=== PATIENT | male | born 1985 | race American Indian/Alaskan Native ===

== ENCOUNTER 2017-01-02 21:09 | Inpatient (IN) | payer OTHER ==
--- NOTE | 2017-01-02 21:38 | C.PDOC ---
History Of Present Illness Patient presents to the ER with a complaint of abdominal pain, nausea, and vomiting that began today. Patient has been drinking heavily over the last couple of days; denies fever or chills. Time Seen by Provider: 01/02/17 21:23 Chief Complaint (Nursing): Abdominal Pain History Per: Patient History/Exam Limitations: no limitations Onset/Duration Of Symptoms: Hrs Current Symptoms Are (Timing): Still Present Severity: Moderate Pain Scale Rating Of: 5 Location Of Pain/Discomfort: Epigastric, LUQ Radiation Of Pain To:: None Quality Of Discomfort: Unable To Describe Associated Symptoms: Nausea, Vomiting. denies: Fever, Chills Exacerbating Factors: None Alleviating Factors: None Recent travel outside of the [place]: No Past Medical History Reviewed: Historical Data, Nursing Documentation, Vital Signs Vital Signs: Last Vital Signs Temp 97.6 F 01/02/17 21:16 Pulse 80 01/02/17 21:16 Resp 16 01/02/17 21:16 BP 115/90 01/02/17 21:16 Pulse Ox 96 01/02/17 22:16 - Medical History PMH: Anxiety, Depression, HTN, Pancreatitis, Post Traumatic Stress Disorder Surgical History: No Surg Hx - [facility] Procedures ALCOHOL DETOXIFICATION (02/13/15) DETOXIFICATION SERVICES FOR SUBSTANCE ABUSE TREATMENT (03/10/15) Family History: States: Unknown Family Hx, Diabetes, Hypertension - Social History Hx Tobacco Use: Yes Hx Alcohol Use: Yes Hx Substance Use: Yes (hx of cocaine,marajuana) - Immunization History Hx Tetanus Toxoid Vaccination: No Hx Influenza Vaccination: Yes Hx Pneumococcal Vaccination: No Review Of Systems Constitutional: Negative for: Fever, Chills Gastrointestinal: Positive for: Nausea, Vomiting, Abdominal Pain Physical Exam - Physical Exam Appears: Non-toxic Skin: Warm, Dry Oral Mucosa: Moist Chest: Symmetrical, No Tenderness Cardiovascular: Rhythm Regular, No Murmur Respiratory: No Rales, No Rhonchi, No Wheezing Gastrointestinal/Abdominal: Soft, Tenderness (Mid epigastric, LUQ), Guarding ( Voluntary), No Rebound Neurological/Psych: Oriented x3 ED Course And Treatment - Laboratory Results Result Diagrams: 01/02/17 21:44 01/02/17 21:44 O2 Sat by Pulse Oximetry: 96 (Room air) Pulse Ox Interpretation: Normal Progress Note: Toradol, zofran, morphine, protonix, and IV fluids administered. Urinalysis ordered. Disposition Discussed With : Laron Santos Comment: accepted the pt on his service and took over the care at 12:39AM Doctor Will See Patient In The: Hospital Counseled Patient/Family Regarding: Studies Performed, Diagnosis - Disposition Disposition: HOSPITALIZED Disposition Time: 00:40 Condition: FAIR - POA Present On Arrival: None - Clinical Impression Clinical Impression: Abdominal pain, Pancreatitis, Alcohol abuse - Scribe Statement The provider has reviewed the documentation as recorded by the Scribandressa Swartz All medical record entries made by the Amadoibe were at my direction and personally dictated by me. I have reviewed the chart and agree that the record accurately reflects my personal performance of the history, physical exam, medical decision making, and the department course for this patient. I have also personally directed, reviewed, and agree with the discharge instructions and disposition. Decision To Admit - Pt Status Changed To: Hospital Disposition Of: Inpatient - Admit Certification Admit to Inpatient:: After my assessment, the patient will require hospitalization for at least two midnights. This is because of the severity of symptoms shown, intensity of services needed, and/or the medical risk in this patient being treated as an outpatient. - InPatient: Physician Admission Certification:: After my assessment, the patient will require hospitalization for at least two midnights. This is because of the severity of symptoms shown, intensity of services needed, and/or the medical risk in this patient being treated as an outpatient. - . Bed Request Type: Regular Patient Diagnosis: Abdominal pain, Pancreatitis, Alcohol abuse
[2017-01-02] MEDS ORDERED: Sodium Chloride 0.9% 1,000 ML IV ONE (21:39)
[2017-01-02] MEDS ORDERED: Sodium Chloride 0.9% 1,000 ML ONE (21:46)
[2017-01-02] MEDS ORDERED: Morphine 4 MG/ML VIAL ONE (21:46)
[2017-01-02 21:53] LABS: BASO # 0.2 K/uL (0.0-0.2); EOS # 0.9 K/uL (0.0-0.7); EOS % 17.5 % (0.0-4.0); HEMOGLOBIN 16.1 g/dL (12.0-18.0); LYMPH # 1.3 K/uL (1.0-4.3); LYMPH % 23.9 % (20.0-40.0); MEAN CELL VOLUME 89.9 fL (80.0-94.0); MEAN CORPUSCULAR HEMOGLOBIN 31.5 pg (27.0-31.0); MEAN PLATELET VOLUME 7.9 fL (7.2-11.7); MONO # 0.3 K/uL (0.0-0.8); MONO % 6.2 % (0.0-10.0); NEUT # 2.6 K/uL (1.8-7.0); NEUT % 49.4 % (50.0-75.0); NRBC % 0.2 % (0.0-2.0); RBC 5.11 Mil/uL (4.40-5.90); RED CELL DISTRIBUTION WIDTH 12.5 % (11.5-14.5); WHITE BLOOD COUNT 5.3 K/uL (4.8-10.8)
[2017-01-02 21:59] LABS: INR 1.1; PROTHROMBIN TIME 11.8 SECONDS (9.7-12.2)
[2017-01-02 22:04] LABS: ALBUMIN 3.8 g/dL (3.5-5.0)
[2017-01-02 22:07] LABS: ALT/SGPT 97 U/L (21-72); AST/SGOT 142 U/L (17-59); BLOOD UREA NITROGEN 14 mg/dL (9-20); CALCIUM 8.7 mg/dl (8.6-10.4); GFR AFRICAN-AMERICAN > 60; GFR NON-AFRICAN AMERICAN > 60
[2017-01-02 22:08] LABS: LIPASE 642 U/L (23-300)
[2017-01-02] MEDS ORDERED: Iodixanol 320 MG/ML 100 ML BOTTLE IV ONE (23:28)
--- NOTE | 2017-01-03 00:21 | CT ---
EXAM: CT Abdomen and Pelvis Without Intravenous Contrast CLINICAL HISTORY: 31 years old, male; Pain; Abdominal pain; Generalized; Additional info: Elevated lipase, abd pain, ETOH abuse TECHNIQUE: Axial computed tomography images of the abdomen and pelvis without intravenous contrast. This CT exam was performed using one or more of the following dose reduction techniques: automated exposure control, adjustment of the mA and/or kV according to patient size, and/or use of iterative reconstruction technique. Coronal and sagittal reformatted images were created and reviewed. COMPARISON: CT - ABD PELVIS W/O PO OR IV CONT 08/09/2015 9:02:47 AM FINDINGS: Lower thorax: The bilateral lung bases are clear. ABDOMEN: Liver: The liver is enlarged and demonstrates diffuse fatty infiltration. Gallbladder and bile ducts: The gallbladder is only minimally distended, without calcified stones. No intra-extrahepatic biliary ductal dilation. Pancreas: Loss of normal fatty lobulation of the pancreas is identified. The pancreas is also increased in size with peripancreatic inflammation, primarily within the lesser sac and retroperitoneum. Spleen: The spleen is not enlarged. Adrenals: No acute findings. Kidneys and ureters: No obstructing stones. No hydronephrosis. PELVIS: Bladder: No acute findings. Reproductive: No acute findings. Appendix: The air filled appendix is of normal caliber (series 3, image 118; series 601, image 72). ABDOMEN and PELVIS: Stomach and bowel: No acute findings. Peritoneum: As above. Lymph nodes: Scattered subcentimeter lymph nodes within the retroperitoneum and the root of the mesentery, a nonspecific finding. Vasculature: No aortic aneurysm. Bones: No acute fracture. IMPRESSION: Findings within the pancreas consistent with acute interstitial edematous pancreatitis, as detailed above. Fatty infiltration of an enlarged liver.
[2017-01-03] MEDS ORDERED: Sodium Chloride 0.45% 1,000 ML IV SCH (01:30)
[2017-01-03] MEDS ORDERED: HYDROmorphone 1 mg/ml ISec ONE (01:31)
[2017-01-03] MEDS: HYDROmorphone 1 mg/ml ISec IVP PRN ×2 (01:44→13:40)
[2017-01-03 02:22] VITALS: RESP 20
[2017-01-03 06:54] LABS: URINE BILIRUBIN NEGATIVE (NEGATIVE); URINE BLOOD NEGATIVE (NEGATIVE); URINE CLARITY Clear (Clear); URINE COLOR Yellow (YELLOW); URINE GLUCOSE (UA) NORMAL (Normal); URINE LEUKOCYTE ESTERASE NEG Leu/uL (Negative); URINE NITRATE NEGATIVE (NEGATIVE); URINE PROTEIN NEGATIVE (NEGATIVE); URINE UROBILINOGEN NORMAL mg/dL (0.2-1.0)
[2017-01-03 08:19] LABS: HEMOGLOBIN 14.9 g/dL (12.0-18.0); MEAN CELL VOLUME 89.5 fL (80.0-94.0); MEAN CORPUSCULAR HEMOGLOBIN 31.4 pg (27.0-31.0); MEAN CORPUSCULAR HGB CONC 35.1 g/dL (33.0-37.0); MEAN PLATELET VOLUME 8.1 fL (7.2-11.7); RBC 4.75 Mil/uL (4.40-5.90); RED CELL DISTRIBUTION WIDTH 12.8 % (11.5-14.5); WHITE BLOOD COUNT 6.5 K/uL (4.8-10.8)
[2017-01-03 08:36] LABS: AMYLASE 146 U/L (30-110); LIPASE 533 U/L (23-300)
[2017-01-03] MEDS: Lactated Ringer's 1,000 ML IV SCH ×4 (09:34→21:00)
--- NOTE | 2017-01-03 09:55 | US ---
HISTORY: pancreatitis COMPARISON: None CT abdomen and pelvis from 01/02/2017. TECHNIQUE: Grayscale imaging was performed. FINDINGS: LIVER: Measures 18.0 cm. There is diffuse echogenicity of the liver parenchyma with focal fatty sparing near the gallbladder fossa. No mass. No intrahepatic bile duct dilatation. GALLBLADDER: Unremarkable. No gallstones. COMMON BILE DUCT: Measures 5.1 mm. No stones. No dilatation. PANCREAS: Mild edematous appearance of the pancreas. No mass. No ductal dilatation. RIGHT KIDNEY: Measures 11.6cm. Normal echogenicity. No calculus, mass, or hydronephrosis. LEFT KIDNEY: Measures 11.1cm. Normal echogenicity. No calculus, mass, or hydronephrosis. SPLEEN: Normal in size and contour. No mass. AORTA: No aneurysmal dilatation. IVC: Unremarkable. OTHER FINDINGS: None. IMPRESSION: Diffuse increased echogenicity in the liver may reflect hepatic steatosis however parenchymal infectious/ inflammatory etiologies cannot be entirely excluded. Clinical and laboratory correlation is advised. No cholelithiasis or biliary dilatation. Mild edematous pancreas.
[2017-01-03] MEDS ORDERED: Enoxaparin 30 mg Syringe SC SCH (10:00)
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
[2017-01-03] MEDS ORDERED: HYDROmorphone 1 mg/ml ISec IVP STA (18:58)
[2017-01-04] MEDS: Lactated Ringer's 1,000 ML IV SCH ×4 (01:00→13:41)
[2017-01-04] MEDS: HYDROmorphone 1 mg/ml ISec IVP PRN (05:30)
--- NOTE | 2017-01-04 08:20 | CP.PCM.PN ---
<Haja Santos - Last Filed: 01/04/17 12:45> Subjective - Date & Time of Evaluation Date of Evaluation: 01/04/17 Time of Evaluation: 07:45 - Subjective Subjective: PGY4 GI follow-up Pt seen and examined bedside No new complaints Abd pain resolved Able to tolerate full diet this AM + loose BM Viral any nausea and vomiting Denies any fever, chills, diaphoresis No other compliants ROS: 12-point ROS conducted, other than what was previously mentioned above ROS is neg Objective - Vital Signs/Intake and Output Vital Signs (last 24 hours): Temp Pulse Resp BP Pulse Ox 98.3 F 50 L 20 147/93 H 99 01/03/17 23:55 01/03/17 23:55 01/03/17 23:55 01/03/17 23:55 01/03/17 23:55 Intake and Output: 01/04/17 01/04/17 06:59 18:59 Intake Total 3850 Output Total 2300 Balance 1550 - Medications Medications: Current Medications Chlordiazepoxide (Librium) 25 mg PO BID PRN PRN Reason: Agitation Last Admin: 01/03/17 22:14 Dose: 25 mg Enoxaparin Sodium (Lovenox) 40 mg SC DAILY [facility] Hydromorphone HCl (Dilaudid) 0.5 mg IVP Q8 PRN PRN Reason: pain Last Admin: 01/04/17 05:30 Dose: 0.5 mg Lactated Ringer's (Lactated Ringer's) 1,000 mls @ 250 mls/hr IV .Q4H [facility] Last Admin: 01/04/17 05:00 Dose: 250 mls/hr Pantoprazole Sodium (Protonix Inj) 40 mg IVP DAILY [facility] Last Admin: 01/03/17 09:27 Dose: 40 mg Thiamine HCl (Vitamin B1 Tab) 100 mg PO DAILY [facility] Last Admin: 01/03/17 17:45 Dose: 100 mg - Labs Labs: 01/03/17 07:56 PT 11.8 SECONDS (9.7-12.2) 01/02/17 21:44 INR 1.1 01/02/17 21:44 APTT 34 SECONDS (21-34) 01/02/17 21:44 - Constitutional Appears: Non-toxic, No Acute Distress - Head Exam Head Exam: ATRAUMATIC, NORMOCEPHALIC - Eye Exam Eye Exam: Normal appearance - ENT Exam ENT Exam: Mucous Membranes Moist, Normal Exam - Neck Exam Neck Exam: Normal Inspection - Respiratory Exam Respiratory Exam: Clear to Ausculation Bilateral, NORMAL BREATHING PATTERN. absent: Rales, Rhonchi, Wheezes - Cardiovascular Exam Cardiovascular Exam: REGULAR RHYTHM, +S1, +S2 - GI/Abdominal Exam GI & Abdominal Exam: Soft, Normal Bowel Sounds. absent: Guarding, Rigid, Tenderness, Organomegaly - Extremities Exam Extremities Exam: Normal Inspection. absent: Joint Swelling - Neurological Exam Neurological Exam: Alert, Awake, Oriented x3 Assessment and Plan - Assessment and Plan (Free Text) Assessment: Patient is a 31yo male with PMHx significant for EtOH abuse, pancreatitis who presented to the ED with one day history of abdominal pain. -Acute EtOH intoxication -Impending EtOH withdrawal -EtOH abuse/dependence -Abdominal pain, resolved - possible mild pancreatitis though clinically not impressive Plan: -Recommend advancing diet as tolerated; pt requesting regular diet -IVF as ordered -Wean off analgesic medications as patient is asymptomatic -EtOH counselling, rehab -EtOH abstinence -OK to D/C from GI standpoint if tolerating diet d/w Dr Mooney <Jesica CALDERON,[facility] - Last Filed: 01/04/17 19:55> Objective - Vital Signs/Intake and Output Vital Signs (last 24 hours): Temp Pulse Resp BP Pulse Ox 98.2 F 53 L 20 140/76 96 01/04/17 07:20 01/04/17 07:20 01/04/17 07:20 01/04/17 07:20 01/04/17 07:20 Intake and Output: 01/04/17 01/05/17 18:59 06:59 Intake Total 1100 Balance 1100 - Labs Labs: 01/04/17 11:25 01/04/17 11:25 PT 11.8 SECONDS (9.7-12.2) 01/02/17 21:44 INR 1.1 01/02/17 21:44 APTT 34 SECONDS (21-34) 01/02/17 21:44 Attending/Attestation - Attestation I have personally seen and examined this patient.: Yes I have fully participated in the care of the patient.: Yes I have reviewed all pertinent clinical information, including history, physical exam and plan: Yes Notes (Text): 01/04/17 19:53 Patient seen with GI fellow. This is a 31 yr old M with alcoholic pancreatitis now with resolving symptoms and tolerating full solid diet. Alcohol cessation councelled and needs close outpatient follow up
[2017-01-04 08:21] VITALS: BP 140/76; PULSE 53; TEMP 98.2; O2SAT 96
[2017-01-04] MEDS ORDERED: Multiple Vitamins Oral Solution PO SCH (10:00)
[2017-01-04] MEDS ORDERED: Enoxaparin 40 mg Syringe SC SCH (10:00)
[2017-01-04 11:35] LABS: BASO % 0.3 % (0.0-2.0); EOS # 0.1 K/uL (0.0-0.7); EOS % 1.9 % (0.0-4.0); HEMOGLOBIN 13.8 g/dL (12.0-18.0); LYMPH # 0.8 K/uL (1.0-4.3); LYMPH % 15.6 % (20.0-40.0); MEAN CELL VOLUME 89.1 fL (80.0-94.0); MEAN CORPUSCULAR HGB CONC 34.7 g/dL (33.0-37.0); MEAN PLATELET VOLUME 8.3 fL (7.2-11.7); MONO # 0.4 K/uL (0.0-0.8); NEUT # 3.9 K/uL (1.8-7.0); NEUT % 74.2 % (50.0-75.0); RBC 4.46 Mil/uL (4.40-5.90); RED CELL DISTRIBUTION WIDTH 12.2 % (11.5-14.5); WHITE BLOOD COUNT 5.2 K/uL (4.8-10.8)
[2017-01-04 11:58] LABS: ALBUMIN 3.1 g/dL (3.5-5.0)
[2017-01-04 12:01] LABS: ALB/GLOB RATIO 0.9 (1.0-2.1); ALT/SGPT 83 U/L (21-72); AST/SGOT 146 U/L (17-59); BLOOD UREA NITROGEN 3 mg/dL (9-20); GFR AFRICAN-AMERICAN > 60; GFR NON-AFRICAN AMERICAN > 60
[2017-01-04 12:02] LABS: CALCIUM 8.3 mg/dl (8.6-10.4); MAGNESIUM 1.5 mg/dL (1.6-2.3)
--- NOTE | 2017-01-04 12:51 | CP.PCM.PN ---
Subjective - Date & Time of Evaluation Date of Evaluation: 01/04/17 Time of Evaluation: 07:30 - Subjective Subjective: PGY2 note for DR. Mary Santos: Patient seen and examined at bedside this morning. He denied abdominal pain stating this had resolved. He was able to tolerate a full diet and denied nausea ,vomiting. He admitted to mild tremors but denied anxiety, hallucinations, seizures, or other signs of withdrawal. Patient denies palpitations, fever/ chills CP, SOB, urinary complaint or all other complaints. He tolerated full diet and is ambulating. Objective - Vital Signs/Intake and Output Vital Signs (last 24 hours): Temp Pulse Resp BP Pulse Ox 98.2 F 53 L 20 140/76 96 01/04/17 07:20 01/04/17 07:20 01/04/17 07:20 01/04/17 07:20 01/04/17 07:20 Intake and Output: 01/04/17 01/04/17 06:59 18:59 Intake Total 3850 Output Total 2300 Balance 1550 - Medications Medications: Current Medications Chlordiazepoxide (Librium) 25 mg PO BID PRN PRN Reason: Agitation Last Admin: 01/03/17 22:14 Dose: 25 mg Enoxaparin Sodium (Lovenox) 40 mg SC DAILY [facility] Last Admin: 01/04/17 09:05 Dose: Not Given Folic Acid (Folic Acid) 1 mg PO DAILY [facility] Last Admin: 01/04/17 10:43 Dose: 1 mg Hydromorphone HCl (Dilaudid) 0.5 mg IVP Q8 PRN PRN Reason: pain Last Admin: 01/04/17 05:30 Dose: 0.5 mg Lactated Ringer's (Lactated Ringer's) 1,000 mls @ 250 mls/hr IV .Q4H [facility] Last Admin: 01/04/17 09:03 Dose: 250 mls/hr Magnesium Sulfate/Dextrose (Magnesium Sulfate 1 Gm/100 Ml D5w) 1 gm in 100 mls @ 300 mls/hr IVPB Q30M [facility] Stop: 01/04/17 13:34 Multivitamins/Vitamin C (Multi-Delyn Liquid) 5 ml PO DAILY [facility] Last Admin: 01/04/17 10:43 Dose: 5 ml Pantoprazole Sodium (Protonix Inj) 40 mg IVP DAILY [facility] Last Admin: 01/04/17 09:05 Dose: 40 mg Thiamine HCl (Vitamin B1 Tab) 100 mg PO DAILY [facility] Last Admin: 01/04/17 09:05 Dose: 100 mg - Labs Labs: 01/04/17 11:25 01/04/17 11:25 PT 11.8 SECONDS (9.7-12.2) 01/02/17 21:44 INR 1.1 01/02/17 21:44 APTT 34 SECONDS (21-34) 01/02/17 21:44 - Constitutional Appears: Non-toxic, No Acute Distress - Head Exam Head Exam: ATRAUMATIC, NORMAL INSPECTION - Eye Exam Eye Exam: EOMI, Normal appearance, PERRL Pupil Exam: NORMAL ACCOMODATION - ENT Exam ENT Exam: Mucous Membranes Moist - Respiratory Exam Respiratory Exam: Clear to Ausculation Bilateral, NORMAL BREATHING PATTERN. absent: Rales, Rhonchi, Wheezes, Respiratory Distress - Cardiovascular Exam Cardiovascular Exam: REGULAR RHYTHM, +S1, +S2 - GI/Abdominal Exam GI & Abdominal Exam: Soft, Normal Bowel Sounds. absent: Distended, Firm, Guarding, Tenderness - Extremities Exam Extremities Exam: Normal Inspection. absent: Calf Tenderness, Pedal Edema - Back Exam Back Exam: NORMAL INSPECTION. absent: CVA tenderness (L), CVA tenderness (R), paraspinal tenderness - Neurological Exam Neurological Exam: Alert, Awake, CN II-XII Intact, Normal Gait, Oriented x3 Additional comments: mild tremor - Psychiatric Exam Psychiatric exam: Normal Affect, Normal Mood - Skin Skin Exam: Dry, Intact, Normal Color, Warm Assessment and Plan - Assessment and Plan (Free Text) Assessment: Pancreatitis Lipase/amylase 538/146 elevated on admission given numerous amount of IVF GI consulted, Dr. Mooney help appreciated - cleared from GI Tolerating full diet abd pain N/V resolved Abd CT pelvis- pancreatitis and fatty liver US - duct patent negative for gallstones Dilaudid 0.5 mg IVP prn pain Q8 hours LR at 250 cc/hour Alcohol withdrawal Seizure/aspiratoin precautions Mv/thiamine/folic acid Librium 20 mg PO BID prn EtOH counselling Advised to stop drinking alcohol Hypomagnesia Mg 1.5 Mg sulfate replaced x 2 grams Lovenox 40mg SC daily LR at 250 cc/hour Protonix 40mg IVP daily Patient is stable for discharge per Dr. Mary Santos. He is to follow up this Wednesday afternoon (01/06) in his office. He is to take Thiamine, multivitamin, and folic acid daily (script was provided on discharge). He is to stop drinking. Patient is to return to the ED if symptoms worsen or return. All instructions explained to the patient and he agrees
[2017-01-04] MEDS: Magnesium Sulfate 1 gm in D5W 1 GM/100 ML BAG IVPB SCH ×2 (12:57→13:35)
== END 2017-01-04 14:24 | disposition home or self-care (01) | DRG 557 ==
LOC: C.ER 21:09 → C.6T 01-03 00:42
PROVIDERS: ADMIT Internal Medicine Nephrology; ATTEND Internal Medicine Nephrology
DX: K85.20 Alcohol induced acute pancreatitis without necrosis or infection (principal); F10.239 Alcohol dependence with withdrawal, unspecified; K86.0 Alcohol-induced chronic pancreatitis; F10.229 Alcohol dependence with intoxication, unspecified; F12.10 Cannabis abuse, uncomplicated; Y90.8 Blood alcohol level of 240 mg/100 ml or more; I10 Essential (primary) hypertension; D66 Hereditary factor VIII deficiency; F17.210 Nicotine dependence, cigarettes, uncomplicated; E55.9 Vitamin D deficiency, unspecified; E83.42 Hypomagnesemia; K70.0 Alcoholic fatty liver; F43.12 Post-traumatic stress disorder, chronic

== ENCOUNTER 2017-03-03 11:16 | Emergency (ER) | payer OTHER ==
[2017-03-03 11:27] VITALS: RESP 20
--- NOTE | 2017-03-03 11:55 | C.PDOC ---
History Of Present Illness 31 y/o male, with PMHx of alcohol abuse and pancreatitis, presents to ED for evaluation of LUQ abdominal pain associated with nausea and vomiting. Pt states that he was drinking alcohol over the past weekend and states symptoms feel similar to prior pancreatitis. Otherwise, denies diarrhea, urinary symptoms, back pain, fever, or chills. Time Seen by Provider: 03/03/17 11:34 Chief Complaint (Nursing): Abdominal Pain History Per: Patient History/Exam Limitations: no limitations Onset/Duration Of Symptoms: Days Current Symptoms Are (Timing): Still Present Severity: Moderate Location Of Pain/Discomfort: LUQ Radiation Of Pain To:: None Quality Of Discomfort: "Pain" Associated Symptoms: Nausea, Vomiting. denies: Diarrhea, Loss Of Appetite, Back Pain, Chest Pain, Constipation, Urinary Symptoms Exacerbating Factors: None Alleviating Factors: None Recent travel outside of the [place]: No Additional History Per: Patient Past Medical History Reviewed: Historical Data, Nursing Documentation, Vital Signs Vital Signs: Last Vital Signs Temp 98.2 F 03/03/17 11:23 Pulse 88 03/03/17 11:23 Resp 20 03/03/17 11:23 BP 155/94 H 03/03/17 11:23 Pulse Ox 100 03/03/17 18:04 - Medical History PMH: Anxiety, Depression, Pancreatitis, Post Traumatic Stress Disorder (mom ) Denies: HTN, Chronic Kidney Disease, Seizures, Sexually Transmitted Disease - [facility] Procedures ALCOHOL DETOXIFICATION (02/13/15) DETOXIFICATION SERVICES FOR SUBSTANCE ABUSE TREATMENT (03/10/15) Family History: States: Unknown Family Hx, Diabetes, Hypertension - Social History Hx Tobacco Use: Yes Hx Alcohol Use: Yes (3 to 4 24 ounce cans beers daily) Hx Substance Use: Yes (yesterday smoke weed) - Immunization History Hx Tetanus Toxoid Vaccination: No Hx Influenza Vaccination: No Hx Pneumococcal Vaccination: No Review Of Systems Except As Marked, All Systems Reviewed And Found Negative. Constitutional: Negative for: Fever, Chills Cardiovascular: Negative for: Chest Pain, Palpitations Respiratory: Negative for: Cough, Shortness of Breath Gastrointestinal: Positive for: Nausea, Vomiting, Abdominal Pain. Negative for : Diarrhea, Constipation, Hematemesis Genitourinary: Negative for: Dysuria, Frequency, Hematuria, Penile Discharge Musculoskeletal: Negative for: Back Pain Physical Exam - Physical Exam Appears: Non-toxic, No Acute Distress Skin: Normal Color, Warm, Dry Head: Atraumatic, Normacephalic Eye(s): bilateral: Normal Inspection, PERRL, EOMI Nose: Normal Oral Mucosa: Moist Neck: Normal ROM, Supple Chest: Symmetrical Cardiovascular: Rhythm Regular, No Murmur Respiratory: Normal Breath Sounds, No Rales, No Rhonchi, No Wheezing Gastrointestinal/Abdominal: Normal Exam, Soft, No Tenderness, No Guarding, No Rebound Back: No CVA Tenderness Extremity: Normal ROM, No Pedal Edema Extremity: Left: Atraumatic Neurological/Psych: Oriented x3, Normal Speech, Normal Cognition ED Course And Treatment - Laboratory Results Result Diagrams: 03/03/17 12:04 03/03/17 17:36 Lab Interpretation: No Acute Changes O2 Sat by Pulse Oximetry: 100 (on RA) Pulse Ox Interpretation: Normal Progress Note: Blood work, UA ordered and reviewed. Treated with 2 Liters NSS and pepcid IV. On re-evaluation feeling better. Treated with additional NSS. Abdomen soft non-tender, requesting discharge home. Patient advised to stop alcohol and follow up with Dr Santos tomorrow Reassessment Condition: Improved Medical Decision Making Medical Decision Making: Patient request discharge to home Disposition Counseled Patient/Family Regarding: Studies Performed, Diagnosis, Need For Followup, Rx Given - Disposition Referrals: Laron Santos MD [Staff Provider] - Disposition Time: 18:15 Condition: IMPROVED Instructions: Abuse of Alcohol (ED) Forms: [facility] (Bulgarian) - POA Present On Arrival: None - Clinical Impression Clinical Impression: Alcohol abuse, Transaminitis, Vomiting - PA / MOBILE HOME PARK MANAGER / Resident Statement MD/DO has reviewed & agrees with the documentation as recorded. - Scribe Statement The provider has reviewed the documentation as recorded by the Scribe Ki Santos All medical record entries made by the Scribe were at my direction and personally dictated by me. I have reviewed the chart and agree that the record accurately reflects my personal performance of the history, physical exam, medical decision making, and the department course for this patient. I have also personally directed, reviewed, and agree with the discharge instructions and disposition.
[2017-03-03 12:07] LABS: BASO % 0.5 % (0.0-2.0); EOS % 0.3 % (0.0-4.0); HEMATOCRIT 45.7 % (35.0-51.0); LYMPH # 1.3 K/uL (1.0-4.3); LYMPH % 26.9 % (20.0-40.0); MEAN CELL VOLUME 90.6 fL (80.0-94.0); MEAN CORPUSCULAR HEMOGLOBIN 33.2 pg (27.0-31.0); MEAN CORPUSCULAR HGB CONC 36.7 g/dL (33.0-37.0); MONO # 0.3 K/uL (0.0-0.8); MONO % 7.4 % (0.0-10.0); NRBC % 0.3 % (0.0-2.0); RED CELL DISTRIBUTION WIDTH 14.3 % (11.5-14.5); WHITE BLOOD COUNT 4.7 K/uL (4.8-10.8)
[2017-03-03 12:26] LABS: CHLORIDE 93 mmol/L (98-107); POTASSIUM 3.7 mmol/L (3.6-5.2); SODIUM 132 mmol/L (132-148)
[2017-03-03 12:28] LABS: AST/SGOT 666 U/L (17-59); BILIRUBIN,TOTAL 1.7 mg/dL (0.2-1.3); CARBON DIOXIDE 16 mmol/L (22-30); GFR AFRICAN-AMERICAN > 60
[2017-03-03 12:29] LABS: ALKALINE PHOSPHATASE 92 U/L (38-126); ALT/SGPT 323 U/L (21-72); BLOOD UREA NITROGEN 6 mg/dL (9-20); CALCIUM 8.7 mg/dl (8.6-10.4); GLUCOSE,RANDOM 128 mg/dL (75-110); TOTAL PROTEIN 8.2 g/dL (6.3-8.3)
[2017-03-03] MEDS ORDERED: Sodium Chloride 0.9% 1,000 ML ONE ×3 (13:00→16:08)
[2017-03-03 13:04] LABS: URINE BILIRUBIN NEGATIVE (NEGATIVE); URINE BLOOD NEGATIVE (NEGATIVE); URINE COLOR Straw (YELLOW); URINE GLUCOSE (UA) NORMAL (Normal); URINE KETONE NEGATIVE (NEGATIVE); URINE LEUKOCYTE ESTERASE NEG Leu/uL (Negative); URINE PROTEIN NEGATIVE (NEGATIVE); URINE UROBILINOGEN NORMAL mg/dL (0.2-1.0); WBC URINE < 1 /hpf (0-5)
[2017-03-03] MEDS ORDERED: Sodium Chloride 0.9% 1,000 ML IV ONE ×2 (13:06→15:34)
[2017-03-03 13:16] LABS: ALCOHOL SERUM 123 mg/dl (0-10)
[2017-03-03 17:48] LABS: CHLORIDE 98 mmol/L (98-107); SODIUM 134 mmol/L (132-148)
[2017-03-03 17:49] LABS: POTASSIUM 3.9 mmol/L (3.6-5.2)
[2017-03-03 17:51] LABS: GFR AFRICAN-AMERICAN > 60
[2017-03-03 17:52] LABS: BLOOD UREA NITROGEN 4 mg/dL (9-20); CALCIUM 7.6 mg/dl (8.6-10.4); CARBON DIOXIDE 21 mmol/L (22-30); GLUCOSE,RANDOM 80 mg/dL (75-110)
[2017-03-03 18:12] VITALS: BP 158/101; PULSE 87; TEMP 99.9; O2SAT 99
== END 2017-03-03 18:25 | disposition home or self-care (01) ==
LOC: C.ER 11:16
DX: F10.10 Alcohol abuse, uncomplicated (principal); Y90.6 Blood alcohol level of 120-199 mg/100 ml; R74.0 Nonspecific elevation of levels of transaminase and lactic acid dehydrogenase [LDH]; R11.10 Vomiting, unspecified
CPT/HCPCS: 80048; 80053; 80320; 81001; 83690; 85025; 96361; 96374; 99284; J7040

== ENCOUNTER 2017-04-16 11:52 | Inpatient (IN) | payer OTHER ==
[2017-04-16] MEDS ORDERED: Sodium Chloride 0.9% 1,000 ML IV ONE (12:01)
[2017-04-16] MEDS ORDERED: Sodium Chloride 0.9% 1,000 ML ONE (12:18)
[2017-04-16] MEDS ORDERED: Morphine 4 MG/ML VIAL IV ONE (12:25)
[2017-04-16 12:28] LABS: BASO % 0.3 % (0.0-2.0); EOS # 0.1 K/uL (0.0-0.7); EOS % 0.7 % (0.0-4.0); HEMATOCRIT 40.2 % (35.0-51.0); LYMPH # 1.3 K/uL (1.0-4.3); LYMPH % 15.9 % (20.0-40.0); MEAN CORPUSCULAR HGB CONC 34.7 g/dL (33.0-37.0); MEAN PLATELET VOLUME 8.2 fL (7.2-11.7); MONO # 0.5 K/uL (0.0-0.8); MONO % 6.7 % (0.0-10.0); NRBC % 0.1 % (0.0-2.0); RED CELL DISTRIBUTION WIDTH 13.3 % (11.5-14.5)
--- NOTE | 2017-04-16 12:28 | C.PDOC ---
History Of Present Illness 31 y/o male with past medical history of pancreatitis, EtOH abuse, presents to emergency department with complaint of diffuse abdominal pain since last night. Patient discribes pain as stabbing. Notes he drank beer last night. Patient also reports associated nausea and vomiting. Denies fever, chills, chest pain, SOB, diarrhea, or other associated symptoms. Time Seen by Provider: 04/16/17 12:01 Chief Complaint (Nursing): Abdominal Pain History Per: Patient History/Exam Limitations: no limitations Onset/Duration Of Symptoms: Days Current Symptoms Are (Timing): Still Present Location Of Pain/Discomfort: Diffuse Radiation Of Pain To:: None Quality Of Discomfort: Stabbing, "Pain" Associated Symptoms: Nausea, Vomiting. denies: Fever, Chills, Diarrhea, Back Pain, Urinary Symptoms Recent travel outside of the [place]: No Past Medical History Reviewed: Historical Data, Nursing Documentation, Vital Signs Vital Signs: Last Vital Signs Temp 98.7 F 04/17/17 08:00 Pulse 63 04/17/17 08:00 Resp 20 04/17/17 08:00 BP 151/82 H 04/17/17 08:00 Pulse Ox 99 04/17/17 08:00 - Medical History PMH: Anxiety, Depression, Pancreatitis, Post Traumatic Stress Disorder (mom ) - [facility] Procedures ALCOHOL DETOXIFICATION (02/13/15) DETOXIFICATION SERVICES FOR SUBSTANCE ABUSE TREATMENT (03/10/15) Family History: States: Unknown Family Hx, Diabetes, Hypertension - Social History Hx Tobacco Use: Yes Hx Alcohol Use: Yes (3 to 4 24 ounce cans beers daily) Hx Substance Use: Yes (yesterday smoke weed) - Immunization History Hx Tetanus Toxoid Vaccination: No Hx Influenza Vaccination: No Hx Pneumococcal Vaccination: No Review Of Systems Except As Marked, All Systems Reviewed And Found Negative. Constitutional: Negative for: Fever, Chills Cardiovascular: Negative for: Chest Pain Respiratory: Negative for: Cough, Shortness of Breath, Wheezing Gastrointestinal: Positive for: Nausea, Vomiting, Abdominal Pain. Negative for : Diarrhea Skin: Negative for: Rash Neurological: Negative for: Headache, Dizziness Physical Exam - Physical Exam Appears: Non-toxic, Other (uncomfortable) Skin: Normal Color, Warm, Dry Head: Atraumatic, Normacephalic Oral Mucosa: Moist Chest: Symmetrical Cardiovascular: Rhythm Regular Respiratory: Normal Breath Sounds, No Rales, No Rhonchi, No Wheezing Gastrointestinal/Abdominal: Soft, Tenderness (diffuse), No Guarding, No Rebound Back: Normal Inspection Extremity: Normal ROM, Capillary Refill (< 2 sec. ) Neurological/Psych: Oriented x3, Normal Speech, Normal Cognition ED Course And Treatment - Laboratory Results Result Diagrams: 04/17/17 08:07 04/17/17 08:07 O2 Sat by Pulse Oximetry: 97 (RA) Pulse Ox Interpretation: Normal - CT Scan/US CT Abdomen/Pelvis Other Rad Studies (CT/US): Read By Radiologist, Radiology Report Reviewed CT/US Interpretation: FINDINGS: LOWER THORAX: There is subsegmental atelectasis in the right lower lobe. The left lung base is clear. LIVER: There is mild hepatomegaly and diffuse fatty infiltration in the liver. No gross lesion or ductal dilatation. GALLBLADDER AND BILE DUCTS: There are no calcified gallstones, wall thickening or pericholecystic fluid. PANCREAS: The pancreas appears bulky with mild edema surrounding the head of the pancreas. No fluid collection. No gross lesion or ductal dilatation. SPLEEN: The spleen is normal in size and appearance. ADRENALS: No discrete nodule. KIDNEYS AND URETERS: Both kidneys are normal in size and there is homogeneous enhancement. No hydronephrosis. No solid mass. VASCULATURE: No aortic aneurysm. BOWEL: There is a jejunal-jejunal intussusception in the left midabdomen with mild segmental dilatation of the proximal jejunum. The mid and distal small bowel loops are normal in caliber. APPENDIX: Normal appendix. PERITONEUM: No free fluid. No free air. LYMPH NODES: No enlarged lymph nodes. BLADDER: Over distended and normal in appearance. REPRODUCTIVE: The prostate gland is normal in size. BONES: No acute fracture. Within normal limits for the patient 's age. OTHER FINDINGS: None. IMPRESSION: 1. Jejunal-jejunal intussusception in the left mid abdomen with mild segmental dilatation of the proximal jejunum. No evidence of bowel obstruction. 2. Persistent mildly bulky pancreas with mild edema surrounding the head of the pancreas. Finding could represent early interstitial acute pancreatitis. Clinical follow-up and correlation with serum lipase levels is advised. 3. Mild hepatomegaly and fatty infiltration in the liver. Medical Decision Making Medical Decision Making: Impression: abdominal pain Plan: * IVFs, Pepcid, Morphine * Bloodwork * Reassess Progress: Patient with clinical and lab findings consistent with acute pancreatitis likely secondary to alcohol use. CT scan also showed intussecption. Will put surgical consult. Spoke with surgical scrub technician Lonnie, who will come to ED and evaluate patient Surgical consult to Dr Jacobo was placed Case discussed with DR Mary Santos who accepted admission. Disposition - Disposition Disposition: HOSPITALIZED Disposition Time: 16:45 Condition: FAIR - POA Present On Arrival: None - Clinical Impression Clinical Impression: Alcohol abuse, Pancreatitis - PA / BULK SYSTEM OPERATOR / Resident Statement MD/DO has reviewed & agrees with the documentation as recorded. - Scribe Statement The provider has reviewed the documentation as recorded by the Scribe Danny Samuels All medical record entries made by the Foreign were at my direction and personally dictated by me. I have reviewed the chart and agree that the record accurately reflects my personal performance of the history, physical exam, medical decision making, and the department course for this patient. I have also personally directed, reviewed, and agree with the discharge instructions and disposition. Decision To Admit - . Patient Diagnosis: Alcohol abuse, Pancreatitis
[2017-04-16 12:30] LABS: MEAN CELL VOLUME 95.1 fL (80.0-94.0); WHITE BLOOD COUNT 7.9 K/uL (4.8-10.8)
[2017-04-16 12:33] LABS: CHLORIDE 102 mmol/L (98-107); SODIUM 136 mmol/L (132-148)
[2017-04-16 12:35] LABS: BILIRUBIN,TOTAL 0.4 mg/dL (0.2-1.3); CARBON DIOXIDE 26 mmol/L (22-30); GFR AFRICAN-AMERICAN > 60
[2017-04-16 12:36] LABS: ALKALINE PHOSPHATASE 56 U/L (38-126); ALT/SGPT 47 U/L (21-72); AST/SGOT 39 U/L (17-59); BLOOD UREA NITROGEN 17 mg/dL (9-20); CALCIUM 8.8 mg/dl (8.6-10.4); GLUCOSE,RANDOM 107 mg/dL (75-110); TOTAL PROTEIN 8.1 g/dL (6.3-8.3)
[2017-04-16 12:37] LABS: ALCOHOL SERUM 57 mg/dl (0-10)
[2017-04-16] MEDS ORDERED: Morphine 4 MG/ML VIAL ONE (12:44)
[2017-04-16 12:46] LABS: POTASSIUM 3.9 mmol/L (3.6-5.2)
[2017-04-16 12:59] LABS: AMYLASE 2003 U/L (30-110)
[2017-04-16] MEDS ORDERED: DiphenhydrAMINE 50 mg/ml Inj IVP STA (13:25)
[2017-04-16] MEDS ORDERED: DiphenhydrAMINE 50 mg/ml Inj ONE (13:29)
[2017-04-16] MEDS ORDERED: Iodixanol 320 mg/ml 150 ml Bottle IV ONE (15:08)
--- NOTE | 2017-04-16 16:27 | CT ---
PROCEDURE: CT Abdomen and Pelvis with contrast HISTORY: upper abdominal pain, h.o pancreatitis COMPARISON: 01/02/2017. TECHNIQUE: CT scan of the abdomen and pelvis was performed after intravenous administration of contrast. Oral contrast was not administered. Coronal and sagittal reformatted images were obtained. Contrast dose: 100 mL Visipaque 320 Radiation dose: Total exam DLP = 730.58 mGy-cm. This CT exam was performed using one or more of the following dose reduction techniques: Automated exposure control, adjustment of the mA and/or kV according to patient size, and/or use of iterative reconstruction technique. FINDINGS: LOWER THORAX: There is subsegmental atelectasis in the right lower lobe. The left lung base is clear. LIVER: There is mild hepatomegaly and diffuse fatty infiltration in the liver. No gross lesion or ductal dilatation. GALLBLADDER AND BILE DUCTS: There are no calcified gallstones, wall thickening or pericholecystic fluid. PANCREAS: The pancreas appears bulky with mild edema surrounding the head of the pancreas. No fluid collection. No gross lesion or ductal dilatation. SPLEEN: The spleen is normal in size and appearance. ADRENALS: No discrete nodule. KIDNEYS AND URETERS: Both kidneys are normal in size and there is homogeneous enhancement. No hydronephrosis. No solid mass. VASCULATURE: No aortic aneurysm. BOWEL: There is a jejunal-jejunal intussusception in the left midabdomen with mild segmental dilatation of the proximal jejunum. The mid and distal small bowel loops are normal in caliber. APPENDIX: Normal appendix. PERITONEUM: No free fluid. No free air. LYMPH NODES: No enlarged lymph nodes. BLADDER: Over distended and normal in appearance. REPRODUCTIVE: The prostate gland is normal in size. BONES: No acute fracture. Within normal limits for the patient's age. OTHER FINDINGS: None. IMPRESSION: 1. Jejunal-jejunal intussusception in the left mid abdomen with mild segmental dilatation of the proximal jejunum. No evidence of bowel obstruction. 2. Persistent mildly bulky pancreas with mild edema surrounding the head of the pancreas. Finding could represent early interstitial acute pancreatitis. Clinical follow-up and correlation with serum lipase levels is advised. 3. Mild hepatomegaly and fatty infiltration in the liver.
[2017-04-16] MEDS ORDERED: Dextrose 5%/0.9% NS 1,000 ML IV SCH ×2 (17:00→21:15)
[2017-04-16 17:15] LABS: URINE BILIRUBIN NEGATIVE (NEGATIVE); URINE BLOOD NEGATIVE (NEGATIVE); URINE COLOR Straw (YELLOW); URINE GLUCOSE (UA) NORMAL (Normal); URINE KETONE NEGATIVE (NEGATIVE); URINE LEUKOCYTE ESTERASE NEG Leu/uL (Negative); URINE PROTEIN NEGATIVE (NEGATIVE); URINE UROBILINOGEN NORMAL mg/dL (0.2-1.0); WBC URINE < 1 /hpf (0-5)
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
[2017-04-16] MEDS: Dextrose 5%/0.9% NS 1,000 ML IV SCH (17:55)
[2017-04-16] MEDS ORDERED: Dextrose 5%/0.9% NS 1,000 ML IV ONE (17:59)
[2017-04-16] MEDS: HYDROmorphone 0.5 mg/0.5 ml ISec IVP PRN (19:32)
[2017-04-16] MEDS ORDERED: HYDROmorphone 0.5 mg/0.5 ml ISec IVP PRN (21:13)
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
[2017-04-17] MEDS: Dextrose 5%/0.9% NS 1,000 ML IV SCH ×4 (03:21→20:17)
[2017-04-17] MEDS: HYDROmorphone 0.5 mg/0.5 ml ISec IVP PRN ×3 (06:17→20:13)
[2017-04-17 08:07] VITALS: RESP 20
[2017-04-17 08:27] LABS: BASO # 0.1 K/uL (0.0-0.2); BASO % 1.1 % (0.0-2.0); EOS % 0.3 % (0.0-4.0); HEMATOCRIT 36.7 % (35.0-51.0); LYMPH # 1.1 K/uL (1.0-4.3); LYMPH % 10.3 % (20.0-40.0); MEAN CORPUSCULAR HEMOGLOBIN 33.8 pg (27.0-31.0); MEAN CORPUSCULAR HGB CONC 35.5 g/dL (33.0-37.0); MEAN PLATELET VOLUME 9.1 fL (7.2-11.7); MONO # 0.8 K/uL (0.0-0.8); MONO % 7.5 % (0.0-10.0); RED CELL DISTRIBUTION WIDTH 12.9 % (11.5-14.5); WHITE BLOOD COUNT 10.6 K/uL (4.8-10.8)
[2017-04-17 08:31] LABS: CHLORIDE 101 mmol/L (98-107); POTASSIUM 3.5 mmol/L (3.6-5.2); SODIUM 136 mmol/L (132-148)
--- NOTE | 2017-04-17 08:31 | CP.PCM.PN ---
<Ezequiel Fleming Piper - Last Filed: 04/17/17 08:32> Subjective - Date & Time of Evaluation Date of Evaluation: 04/17/17 Time of Evaluation: 08:30 - Subjective Subjective: General Surgery: Dr Jacobo Pt S&E. JOSE. Reports abdominal pain improving but still present 10/14. Alleviated by pain medication. Tolerating PO intake of liquids. Explained in detail to pt the nature of his problem, and that it is directly related to his alcohol intake. Pt counseled on cessation. CT findings of intussusception also explained to pt as well as plan for repeat imaging on wednesday. Explained to pt he cannot be D/C until his pain has resolved. Denies any nausea or vomiting or any other obstructive symptoms. Objective - Vital Signs/Intake and Output Vital Signs (last 24 hours): Temp Pulse Resp BP Pulse Ox 98.7 F 63 20 151/82 H 99 04/17/17 08:00 04/17/17 08:00 04/17/17 08:00 04/17/17 08:00 04/17/17 08:00 Intake and Output: 04/17/17 04/17/17 06:59 18:59 Intake Total 800 Balance 800 - Medications Medications: Current Medications Diphenhydramine HCl (Benadryl) 25 mg PO Q3 PRN PRN Reason: Pain, moderate (4-7) Famotidine (Pepcid) 20 mg IVP Q12 [facility] Last Admin: 04/16/17 22:16 Dose: 20 mg Hydromorphone HCl (Dilaudid) 0.5 mg IVP Q3H PRN PRN Reason: Pain, moderate (4-7) Last Admin: 04/17/17 06:17 Dose: 0.5 mg Hydromorphone HCl (Dilaudid) 0.5 mg IVP Q3H PRN PRN Reason: Pain, severe (8-10) Dextrose/Sodium Chloride (Dextrose 5%/0.9% Ns 1000 Ml) 1,000 mls @ 200 mls/hr IV .Q5H [facility] Last Admin: 04/17/17 03:21 Dose: Not Given - Labs Labs: 04/16/17 12:19 04/16/17 12:19 - Constitutional Appears: Non-toxic, No Acute Distress - ENT Exam ENT Exam: Mucous Membranes Dry - Respiratory Exam Respiratory Exam: absent: Accessory Muscle Use, Respiratory Distress - Cardiovascular Exam Cardiovascular Exam: REGULAR RHYTHM. absent: Tachycardia - GI/Abdominal Exam GI & Abdominal Exam: Soft, Tenderness (epigastric - diffuse pain has resolved). absent: Distended, Firm, Guarding, Rigid Assessment and Plan - Assessment and Plan (Free Text) Assessment: 31M with alcohol induced pancreatitis; incidental CT findings of intussusception Plan: IV fluids @ 200mls/hr for pancreatitis dilaudid for pain cont CLD - do not advance until symptoms resolve there is no need to trend lipase for mgmt of pancreatitis - CLD and IV fluids until pain resolves will plan for UGI series on wednesday to ensure there is no actual intussusception will d/w Dr Odalis Fleming, PGY3 <Oliver Jacobo B - Last Filed: 04/17/17 21:32> Objective - Vital Signs/Intake and Output Vital Signs (last 24 hours): Temp Pulse Resp BP Pulse Ox 98.2 F 63 20 122/75 96 04/17/17 15:15 04/17/17 15:15 04/17/17 15:15 04/17/17 15:15 04/17/17 15:15 Intake and Output: 04/17/17 04/18/17 18:59 06:59 Intake Total 1850 Balance 1850 - Medications Medications: Current Medications Diphenhydramine HCl (Benadryl) 25 mg PO Q3 PRN PRN Reason: Pain, moderate (4-7) Famotidine (Pepcid) 20 mg IVP Q12 [facility] Last Admin: 04/17/17 21:19 Dose: 20 mg Hydromorphone HCl (Dilaudid) 0.5 mg IVP Q3H PRN PRN Reason: Pain, moderate (4-7) Last Admin: 04/17/17 20:13 Dose: 0.5 mg Hydromorphone HCl (Dilaudid) 0.5 mg IVP Q3H PRN PRN Reason: Pain, severe (8-10) Dextrose/Sodium Chloride (Dextrose 5%/0.9% Ns 1000 Ml) 1,000 mls @ 200 mls/hr IV .Q5H [facility] Last Admin: 04/17/17 20:17 Dose: 200 mls/hr - Labs Labs: 04/17/17 08:07 04/17/17 08:07 Attending/Attestation - Attestation I have personally seen and examined this patient.: Yes I have fully participated in the care of the patient.: Yes I have reviewed all pertinent clinical information, including history, physical exam and plan: Yes Notes (Text): Pt was seen and examined at bedside Agree with above note and assessment Pt is improving clinically Wants to eat regular food No abdominal tenderness C/W IV current mx Upper GI series in am Plan d.w pt in detail. Risk and benefit explained in detail
[2017-04-17 08:33] LABS: AMYLASE 882 U/L (30-110)
[2017-04-17 08:34] LABS: ALB/GLOB RATIO 0.9 (1.0-2.1); ALKALINE PHOSPHATASE 55 U/L (38-126); ALT/SGPT 37 U/L (21-72); AST/SGOT 31 U/L (17-59); BILIRUBIN,TOTAL 0.9 mg/dL (0.2-1.3); BLOOD UREA NITROGEN 9 mg/dL (9-20); CARBON DIOXIDE 22 mmol/L (22-30); GFR AFRICAN-AMERICAN > 60; GLUCOSE,RANDOM 130 mg/dL (75-110); TOTAL PROTEIN 7.6 g/dL (6.3-8.3)
[2017-04-17 08:35] LABS: CALCIUM 8.3 mg/dl (8.6-10.4)
[2017-04-17] MEDS ORDERED: Potassium Chloride 20 mEq ER Tab PO ONE (10:27)
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
--- NOTE | 2017-04-17 18:25 | CP.PCM.PN ---
Subjective - Date & Time of Evaluation Date of Evaluation: 04/17/17 Time of Evaluation: 08:40 - Subjective Subjective: clinically same Objective - Vital Signs/Intake and Output Vital Signs (last 24 hours): Temp Pulse Resp BP Pulse Ox 98.2 F 63 20 122/75 96 04/17/17 15:15 04/17/17 15:15 04/17/17 15:15 04/17/17 15:15 04/17/17 15:15 Intake and Output: 04/17/17 04/17/17 06:59 18:59 Intake Total 800 1850 Balance 800 1850 - Medications Medications: Current Medications Diphenhydramine HCl (Benadryl) 25 mg PO Q3 PRN PRN Reason: Pain, moderate (4-7) Famotidine (Pepcid) 20 mg IVP Q12 [facility] Last Admin: 04/17/17 10:57 Dose: 20 mg Hydromorphone HCl (Dilaudid) 0.5 mg IVP Q3H PRN PRN Reason: Pain, moderate (4-7) Last Admin: 04/17/17 10:56 Dose: 0.5 mg Hydromorphone HCl (Dilaudid) 0.5 mg IVP Q3H PRN PRN Reason: Pain, severe (8-10) Dextrose/Sodium Chloride (Dextrose 5%/0.9% Ns 1000 Ml) 1,000 mls @ 200 mls/hr IV .Q5H [facility] Last Admin: 04/17/17 10:58 Dose: 200 mls/hr - Labs Labs: 04/17/17 08:07 04/17/17 08:07 - Constitutional Appears: Well - Head Exam Head Exam: ATRAUMATIC, NORMAL INSPECTION, NORMOCEPHALIC - Eye Exam Eye Exam: EOMI, Normal appearance, PERRL Pupil Exam: NORMAL ACCOMODATION, PERRL - ENT Exam ENT Exam: Mucous Membranes Moist, Normal Exam - Neck Exam Neck Exam: Full ROM, Normal Inspection. absent: Lymphadenopathy - Respiratory Exam Respiratory Exam: Decreased Breath Sounds - Cardiovascular Exam Cardiovascular Exam: REGULAR RHYTHM, +S1, +S2. absent: Murmur - GI/Abdominal Exam GI & Abdominal Exam: Soft, Normal Bowel Sounds. absent: Tenderness - Rectal Exam Rectal Exam: Deferred Assessment and Plan (1) Abdominal pain Status: Acute (2) Abscess Status: Acute (3) Alcohol abuse Status: Acute (4) Alcohol abuse Status: Acute (5) Alcohol dependence Status: Acute (6) Alcohol dependence in controlled environment Status: Acute (7) Alcoholic gastritis Status: Acute (8) Alcoholism Status: Acute (9) Dental caries Status: Acute (10) Depression Status: Acute (11) Depression with suicidal ideation Status: Acute (12) Drug abuse Status: Acute (13) Drug dependence Status: Acute (14) Pancreatitis Status: Acute (15) Pancreatitis Status: Acute (16) Sinusitis Status: Acute (17) Toxic effect of isopropyl alcohol Status: Acute (18) Transaminitis Status: Acute (19) Vomiting Status: Acute - Assessment and Plan (Free Text) Plan: Patient examined. CT abdomen suggestive of jejunojejunal intussusception in the left mid abdomen with mild segmental dilation of the proximal jejunum. No evidence of bowel obstruction. Mildly bulky pancreas with mild edema surrounding the head of pancreas. Possibility of early interstitial acute pancreatitis. Mild hepatomegaly and fatty infiltration of liver. Laboratory investigation so significantly raised amylase and lipase. Toxicology screen shows alcohol decreased in blood. Acute pancreatitis. Continue supportive medications. Pain medications.
[2017-04-18] MEDS: Dextrose 5%/0.9% NS 1,000 ML IV SCH ×4 (00:45→20:11)
[2017-04-18] MEDS: HYDROmorphone 0.5 mg/0.5 ml ISec IVP PRN ×3 (07:48→20:12)
--- NOTE | 2017-04-18 08:57 | CP.PCM.PN ---
<YunierjeniferbrunoAndrew garcia - Last Filed: 04/18/17 09:00> Subjective - Date & Time of Evaluation Date of Evaluation: 04/18/17 Time of Evaluation: 07:15 - Subjective Subjective: General Surgery Note for Dr. Jacobo Patient seen and examined at bedside. No acute event overnight. Patient states abdominal pain is still moderate. He states he was tolerating liquids fine then he tried some tuna and the pain worsened. Patient was instructed to stick to liquids for now. Patient denies fever/chills, nausea/vomiting, and diarrhea. Objective - Vital Signs/Intake and Output Vital Signs (last 24 hours): Temp Pulse Resp BP Pulse Ox 98.4 F 74 20 152/88 H 97 04/18/17 08:00 04/18/17 08:00 04/18/17 08:00 04/18/17 08:00 04/18/17 08:00 Intake and Output: 04/18/17 04/18/17 06:59 18:59 Intake Total 1780 Balance 1780 - Medications Medications: Current Medications Diphenhydramine HCl (Benadryl) 25 mg PO Q3 PRN PRN Reason: Pain, moderate (4-7) Famotidine (Pepcid) 20 mg IVP Q12 [facility] Last Admin: 04/17/17 21:19 Dose: 20 mg Hydromorphone HCl (Dilaudid) 0.5 mg IVP Q3H PRN PRN Reason: Pain, moderate (4-7) Last Admin: 04/18/17 07:48 Dose: 0.5 mg Hydromorphone HCl (Dilaudid) 0.5 mg IVP Q3H PRN PRN Reason: Pain, severe (8-10) Dextrose/Sodium Chloride (Dextrose 5%/0.9% Ns 1000 Ml) 1,000 mls @ 200 mls/hr IV .Q5H [facility] Last Admin: 04/18/17 05:33 Dose: 200 mls/hr - Labs Labs: 04/17/17 08:07 04/17/17 08:07 - Constitutional Appears: No Acute Distress - Head Exam Head Exam: ATRAUMATIC, NORMOCEPHALIC - Eye Exam Eye Exam: Normal appearance - ENT Exam ENT Exam: Mucous Membranes Moist - Respiratory Exam Respiratory Exam: NORMAL BREATHING PATTERN - Cardiovascular Exam Cardiovascular Exam: REGULAR RHYTHM - GI/Abdominal Exam GI & Abdominal Exam: Guarding (voluntary guarding on palpation), Soft, Tenderness (epigastric region). absent: Distended, Firm, Rigid, Mass, Rebound - Neurological Exam Neurological Exam: Alert, Awake, Oriented x3 - Psychiatric Exam Psychiatric exam: Normal Affect, Normal Mood - Skin Skin Exam: Dry, Warm Assessment and Plan - Assessment and Plan (Free Text) Plan: 31 M with alcohol induced pancreatitis and incidental CT findings of intussusception -CLD, may advance when pain subsides -Continue IV fluids at 200cc/hr -Analgesics/Antiemtics PRN -Upper GI series on Wednesday to make sure there is no intussusception -Will Discuss with Dr. Odalis Holt PGY1 <Oliver Jacobo - Last Filed: 04/21/17 18:40> Objective - Vital Signs/Intake and Output Vital Signs (last 24 hours): Temp Pulse Resp BP Pulse Ox 98.1 F 61 20 133/79 99 04/19/17 23:23 04/19/17 23:23 04/19/17 23:23 04/19/17 23:23 04/19/17 23:23 - Labs Labs: 04/20/17 08:09 04/20/17 08:09 Attending/Attestation - Attestation I have personally seen and examined this patient.: Yes I have fully participated in the care of the patient.: Yes I have reviewed all pertinent clinical information, including history, physical exam and plan: Yes Notes (Text): Pt was seen and examined at bedside Agree with above note and assessment Pt with ETOH Pancreatitis with CT scan finding of Intussusception Mild abdminnal wall tenderness Labs and Radiology reviewed. NPO, IVF Serial abdomina exam continue with current mx Plan d.w pt in detail. Risk and benefit explained in detail.
[2017-04-18 09:30] LABS: CHLORIDE 100 mmol/L (98-107)
[2017-04-18 09:31] LABS: POTASSIUM 3.4 mmol/L (3.6-5.2); SODIUM 134 mmol/L (132-148)
[2017-04-18 09:33] LABS: ALB/GLOB RATIO 0.9 (1.0-2.1); ALKALINE PHOSPHATASE 54 U/L (38-126); ALT/SGPT 44 U/L (21-72); AST/SGOT 43 U/L (17-59); BILIRUBIN,TOTAL 0.6 mg/dL (0.2-1.3); BLOOD UREA NITROGEN 3 mg/dL (9-20); CALCIUM 8.5 mg/dl (8.6-10.4); CARBON DIOXIDE 25 mmol/L (22-30); GFR AFRICAN-AMERICAN > 60; GLUCOSE,RANDOM 129 mg/dL (75-110); TOTAL PROTEIN 7.7 g/dL (6.3-8.3)
--- NOTE | 2017-04-18 12:40 | CP.PCM.PN ---
<Haja Santos - Last Filed: 04/18/17 12:41> Subjective - Date & Time of Evaluation Date of Evaluation: 04/18/17 Time of Evaluation: 06:00 - Subjective Subjective: PGY 4 GI follow-up Pt seen and examined bedside advanced to low fat diet today tolerated liquids abd pain has significantly improved +BM Denies any nausea or vomiting ROS: 10 point ROS is conducted neg other than above Objective - Vital Signs/Intake and Output Vital Signs (last 24 hours): Temp Pulse Resp BP Pulse Ox 98.4 F 74 20 152/88 H 97 04/18/17 08:00 04/18/17 08:00 04/18/17 08:00 04/18/17 08:00 04/18/17 08:00 Intake and Output: 04/18/17 04/18/17 06:59 18:59 Intake Total 1780 Balance 1780 - Medications Medications: Current Medications Diphenhydramine HCl (Benadryl) 25 mg PO Q3 PRN PRN Reason: Pain, moderate (4-7) Famotidine (Pepcid) 20 mg IVP Q12 [facility] Last Admin: 04/18/17 09:22 Dose: 20 mg Hydromorphone HCl (Dilaudid) 0.5 mg IVP Q3H PRN PRN Reason: Pain, moderate (4-7) Last Admin: 04/18/17 11:51 Dose: 0.5 mg Hydromorphone HCl (Dilaudid) 0.5 mg IVP Q3H PRN PRN Reason: Pain, severe (8-10) Dextrose/Sodium Chloride (Dextrose 5%/0.9% Ns 1000 Ml) 1,000 mls @ 200 mls/hr IV .Q5H [facility] Last Admin: 04/18/17 11:06 Dose: 200 mls/hr - Labs Labs: 04/17/17 08:07 04/18/17 09:06 - Constitutional Appears: Well, No Acute Distress - Head Exam Head Exam: ATRAUMATIC, NORMOCEPHALIC - Eye Exam Eye Exam: Normal appearance - ENT Exam ENT Exam: Mucous Membranes Moist - Respiratory Exam Respiratory Exam: Clear to Ausculation Bilateral, NORMAL BREATHING PATTERN. absent: Rales, Rhonchi, Wheezes, Respiratory Distress - Cardiovascular Exam Cardiovascular Exam: REGULAR RHYTHM, +S1, +S2 - GI/Abdominal Exam GI & Abdominal Exam: Soft, Tenderness, Normal Bowel Sounds Additional comments: epigastric area, slight - Extremities Exam Extremities Exam: absent: Joint Swelling, Pedal Edema - Neurological Exam Neurological Exam: Alert, Awake, Oriented x3 - Psychiatric Exam Psychiatric exam: Normal Affect, Normal Mood - Skin Skin Exam: Dry, Intact, Normal Color, Warm Assessment and Plan - Assessment and Plan (Free Text) Assessment: Brando Cain is a 31M w/ hx of Etoh abuse and pancreatitis who presents to the ED with complaints of abd pain Acute Pancreatitis 2/2 Etoh Etoh Abuse Nausea and vomiting 2/2 to above Plan: -advance to low fat -encourage fluid intake -continue Pain management -monitor HCT and BUN; stable -EtOH counselling, rehab -EtOH abstinence -if able to tolerate low fat diet, pt is cleared for d/c from GI standpoint D/W Dr. Mooney <Melody Mooney MD - Last Filed: 04/18/17 15:30> Objective - Vital Signs/Intake and Output Vital Signs (last 24 hours): Temp Pulse Resp BP Pulse Ox 98.4 F 74 20 152/88 H 97 04/18/17 08:00 04/18/17 08:00 04/18/17 08:00 04/18/17 08:00 04/18/17 08:00 Intake and Output: 04/18/17 04/18/17 06:59 18:59 Intake Total 3730 Balance 3730 - Medications Medications: Current Medications Diphenhydramine HCl (Benadryl) 25 mg PO Q3 PRN PRN Reason: Pain, moderate (4-7) Famotidine (Pepcid) 20 mg IVP Q12 [facility] Last Admin: 04/18/17 09:22 Dose: 20 mg Hydromorphone HCl (Dilaudid) 0.5 mg IVP Q3H PRN PRN Reason: Pain, moderate (4-7) Last Admin: 04/18/17 11:51 Dose: 0.5 mg Hydromorphone HCl (Dilaudid) 0.5 mg IVP Q3H PRN PRN Reason: Pain, severe (8-10) Dextrose/Sodium Chloride (Dextrose 5%/0.9% Ns 1000 Ml) 1,000 mls @ 200 mls/hr IV .Q5H [facility] Last Admin: 04/18/17 11:06 Dose: 200 mls/hr - Labs Labs: 04/17/17 08:07 04/18/17 09:06 Attending/Attestation - Attestation I have personally seen and examined this patient.: Yes I have fully participated in the care of the patient.: Yes I have reviewed all pertinent clinical information, including history, physical exam and plan: Yes Notes (Text): 04/18/17 15:29 Patient seen with GI fellow on rounds early am. This is a 31 yr old M w/ hx of Etoh abuse and pancreatitis who presents to the ED with complaints of abdominal pain in setting of acute interstitial pancreatitis. Continue IVF at 200cc/hr and trend daily Hct and BUN. Pain and nausea better. May advance diet to low fat regular as tolerated. Supportive care. Ethanol cessation. can be discharged with GI outpatient follow up. Thank you for letting us participate in the care of this patient
--- NOTE | 2017-04-18 13:48 | CP.PCM.PN ---
Subjective - Date & Time of Evaluation Date of Evaluation: 04/18/17 Time of Evaluation: 08:40 - Subjective Subjective: clinically same Objective - Vital Signs/Intake and Output Vital Signs (last 24 hours): Temp Pulse Resp BP Pulse Ox 98.4 F 74 20 152/88 H 97 04/18/17 08:00 04/18/17 08:00 04/18/17 08:00 04/18/17 08:00 04/18/17 08:00 Intake and Output: 04/18/17 04/18/17 06:59 18:59 Intake Total 1780 Balance 1780 - Medications Medications: Current Medications Diphenhydramine HCl (Benadryl) 25 mg PO Q3 PRN PRN Reason: Pain, moderate (4-7) Famotidine (Pepcid) 20 mg IVP Q12 [facility] Last Admin: 04/18/17 09:22 Dose: 20 mg Hydromorphone HCl (Dilaudid) 0.5 mg IVP Q3H PRN PRN Reason: Pain, moderate (4-7) Last Admin: 04/18/17 11:51 Dose: 0.5 mg Hydromorphone HCl (Dilaudid) 0.5 mg IVP Q3H PRN PRN Reason: Pain, severe (8-10) Dextrose/Sodium Chloride (Dextrose 5%/0.9% Ns 1000 Ml) 1,000 mls @ 200 mls/hr IV .Q5H [facility] Last Admin: 04/18/17 11:06 Dose: 200 mls/hr - Labs Labs: 04/17/17 08:07 04/18/17 09:06 - Constitutional Appears: Well - Head Exam Head Exam: ATRAUMATIC, NORMAL INSPECTION, NORMOCEPHALIC - Eye Exam Eye Exam: EOMI, Normal appearance, PERRL Pupil Exam: NORMAL ACCOMODATION, PERRL - ENT Exam ENT Exam: Mucous Membranes Moist, Normal Exam - Neck Exam Neck Exam: Full ROM, Normal Inspection. absent: Lymphadenopathy - Respiratory Exam Respiratory Exam: Decreased Breath Sounds - Cardiovascular Exam Cardiovascular Exam: REGULAR RHYTHM, +S1, +S2 - GI/Abdominal Exam GI & Abdominal Exam: Soft, Diminished Bowel Sounds - Rectal Exam Rectal Exam: Deferred Assessment and Plan (1) Abdominal pain Status: Acute (2) Abscess Status: Acute (3) Alcohol abuse Status: Acute (4) Alcohol abuse Status: Acute (5) Alcohol dependence Status: Acute (6) Alcohol dependence in controlled environment Status: Acute (7) Alcoholic gastritis Status: Acute (8) Alcoholism Status: Acute (9) Dental caries Status: Acute (10) Depression Status: Acute (11) Depression with suicidal ideation Status: Acute (12) Drug abuse Status: Acute (13) Drug dependence Status: Acute (14) Pancreatitis Status: Acute (15) Pancreatitis Status: Acute (16) Sinusitis Status: Acute (17) Toxic effect of isopropyl alcohol Status: Acute (18) Transaminitis Status: Acute (19) Vomiting Status: Acute - Assessment and Plan (Free Text) Plan: Patient examined. Patient tolerating oral liquids. GI reference done. Advised to start low-fat diet today. Pain present but reduced. Continue pain medications. Continue supportive care.
[2017-04-19] MEDS: Dextrose 5%/0.9% NS 1,000 ML IV SCH ×2 (00:52→05:29)
[2017-04-19 08:10] LABS: BASO % 0.2 % (0.0-2.0); EOS # 0.1 K/uL (0.0-0.7); EOS % 1.7 % (0.0-4.0); HEMATOCRIT 34.8 % (35.0-51.0); LYMPH % 14.3 % (20.0-40.0); MEAN CELL VOLUME 95.5 fL (80.0-94.0); MEAN CORPUSCULAR HEMOGLOBIN 33.1 pg (27.0-31.0); MEAN CORPUSCULAR HGB CONC 34.7 g/dL (33.0-37.0); MEAN PLATELET VOLUME 8.7 fL (7.2-11.7); MONO # 0.5 K/uL (0.0-0.8); MONO % 6.6 % (0.0-10.0); RED CELL DISTRIBUTION WIDTH 12.5 % (11.5-14.5); WHITE BLOOD COUNT 7.3 K/uL (4.8-10.8)
[2017-04-19 08:15] LABS: CHLORIDE 101 mmol/L (98-107); POTASSIUM 3.4 mmol/L (3.6-5.2); SODIUM 135 mmol/L (132-148)
[2017-04-19 08:17] LABS: AST/SGOT 65 U/L (17-59); BILIRUBIN,TOTAL 0.7 mg/dL (0.2-1.3); GFR AFRICAN-AMERICAN > 60
[2017-04-19 08:18] LABS: ALB/GLOB RATIO 1.3 (1.0-2.1); ALKALINE PHOSPHATASE 52 U/L (38-126); ALT/SGPT 53 U/L (21-72); BLOOD UREA NITROGEN 4 mg/dL (9-20); CALCIUM 8.4 mg/dl (8.6-10.4); CARBON DIOXIDE 26 mmol/L (22-30); GLUCOSE,RANDOM 130 mg/dL (75-110); TOTAL PROTEIN 6.5 g/dL (6.3-8.3)
[2017-04-19] MEDS ORDERED: Barium Sulfate for Susp 96% w/w 176g Bottle PR ONE ×2 (09:49→09:50)
[2017-04-19] MEDS ORDERED: Pneumococcal 23-Valent Vaccine IM ONE (10:00)
[2017-04-19] MEDS ORDERED: Influenza Vaccine 60 mcg/0.5 mL SYR (4YR UP) IM ONE (10:00)
--- NOTE | 2017-04-19 10:51 | CP.PCM.PN ---
<LynnSarah H - Last Filed: 04/19/17 10:44> Subjective - Date & Time of Evaluation Date of Evaluation: 04/19/17 Time of Evaluation: 08:50 - Subjective Subjective: PGY3 Medicine Note - Dr. Janet Santos's service: Patient seen and examined at bedside this AM. Patient reports mild upper abdominal pain. Patient reports eating his breakfast without nausea, vomiting, diarrhea or constipation. Patient had a normal BM last night and this AM. Patient denies fever, chills, chest pain, SOB. Objective - Vital Signs/Intake and Output Vital Signs (last 24 hours): Temp Pulse Resp BP Pulse Ox 98.1 F 62 20 154/90 H 100 04/19/17 07:48 04/19/17 07:48 04/19/17 07:48 04/19/17 07:48 04/19/17 07:48 Intake and Output: 04/19/17 04/19/17 06:59 18:59 Intake Total 3560 Balance 3560 - Medications Medications: Current Medications Diphenhydramine HCl (Benadryl) 25 mg PO Q3 PRN PRN Reason: Pain, moderate (4-7) Famotidine (Pepcid) 20 mg IVP Q12 KEVON Last Admin: 04/19/17 10:27 Dose: 20 mg Hydromorphone HCl (Dilaudid) 0.5 mg IVP Q3H PRN PRN Reason: Pain, moderate (4-7) Last Admin: 04/18/17 20:12 Dose: 0.5 mg Hydromorphone HCl (Dilaudid) 0.5 mg IVP Q3H PRN PRN Reason: Pain, severe (8-10) Dextrose/Sodium Chloride (Dextrose 5%/0.9% Ns 1000 Ml) 1,000 mls @ 200 mls/hr IV .Q5H KEVON Last Admin: 04/19/17 05:29 Dose: 200 mls/hr Potassium Chloride (Potassium Chloride 20 Meq/100 Ml) 20 meq in 100 mls @ 50 mls/hr IVPB ONCE ONE Stop: 04/19/17 12:39 - Labs Labs: 04/19/17 07:50 04/19/17 07:50 - Constitutional Appears: Non-toxic, No Acute Distress - Head Exam Head Exam: NORMAL INSPECTION - Eye Exam Eye Exam: EOMI - ENT Exam ENT Exam: Mucous Membranes Moist - Respiratory Exam Respiratory Exam: Clear to Ausculation Bilateral, NORMAL BREATHING PATTERN. absent: Rales, Rhonchi, Wheezes - Cardiovascular Exam Cardiovascular Exam: REGULAR RHYTHM, +S1, +S2. absent: Gallop, Rubs, Murmur - GI/Abdominal Exam GI & Abdominal Exam: Soft, Tenderness, Normal Bowel Sounds. absent: Distended, Firm, Guarding, Rigid - Extremities Exam Extremities Exam: Normal Capillary Refill. absent: Pedal Edema - Neurological Exam Neurological Exam: Alert, Awake, Oriented x3 - Psychiatric Exam Psychiatric exam: Normal Affect, Normal Mood - Skin Skin Exam: Normal Color, Warm Assessment and Plan - Assessment and Plan (Free Text) Assessment: Acute Pancreatitis Likely secondary to ETOH use disorder GI consult - Dr. Mooney - help appreciated Advance to low fat diet Encourage fluid intake D5NS 200ml/hr Dilaudid 0.5mg IVP Q4 PRN Pain, severe ETOH use disorder Outpatient rehab Counselled on ETOH abstinence Thiamine 100mg PO daily Folic Acid 1mg PO daily MVI PO daily Jejuno-Jejunal Intussusception Seen on CT scan Surgery consult - Dr. Jacobo - help appreciated NPO for GI series today F/U report Hypokalemia Potassium Chloride 20meq IVPB once F/U K and Mg in AM Prophylaxis Protonix 40mg PO daily Ambulate SCDs All medical management per Dr. Janet Santos <Laron Santos S - Last Filed: 04/20/17 14:27> Objective - Vital Signs/Intake and Output Vital Signs (last 24 hours): Temp Pulse Resp BP Pulse Ox 98.1 F 61 20 133/79 99 04/19/17 23:23 04/19/17 23:23 04/19/17 23:23 04/19/17 23:23 04/19/17 23:23 Intake and Output: 04/20/17 04/20/17 06:59 18:59 Intake Total 800 2080 Balance 800 2080 - Labs Labs: 04/20/17 08:09 04/20/17 08:09 Assessment and Plan (1) Abdominal pain Status: Acute (2) Abscess Status: Acute (3) Alcohol abuse Status: Acute (4) Alcohol abuse Status: Acute (5) Alcohol dependence Status: Acute (6) Alcohol dependence in controlled environment Status: Acute (7) Alcoholic gastritis Status: Acute (8) Alcoholism Status: Acute (9) Dental caries Status: Acute (10) Depression Status: Acute (11) Depression with suicidal ideation Status: Acute (12) Drug abuse Status: Acute (13) Drug dependence Status: Acute (14) Pancreatitis Status: Acute (15) Pancreatitis Status: Acute (16) Sinusitis Status: Acute (17) Toxic effect of isopropyl alcohol Status: Acute (18) Transaminitis Status: Acute (19) Vomiting Status: Acute Attending/Attestation - Attestation I have personally seen and examined this patient.: Yes I have fully participated in the care of the patient.: Yes I have reviewed all pertinent clinical information, including history, physical exam and plan: Yes Notes (Text): Patient examined. Upper abdominal pain present. Patient tolerating oral feeds. Continue pain medications. Continue supportive medications.
[2017-04-19] MEDS ORDERED: Potassium Chloride 20 mEq ER Tab PO ONE (14:00)
--- NOTE | 2017-04-19 16:03 | CP.PCM.PN ---
<YanetAndrew - Last Filed: 04/19/17 16:01> Subjective - Date & Time of Evaluation Date of Evaluation: 04/19/17 Time of Evaluation: 07:05 - Subjective Subjective: General Surgery Note for Dr. Jacobo Patient seen and examined at bedside. No acute event overnight. Patient states abdominal pain is improving. He is tolerating regular diet and having normal BMs. Upper Gi seris was done today, awaiting report. No other complaints. Denies fever/chills, nausea/vomiting, and diarrhea. Objective - Vital Signs/Intake and Output Vital Signs (last 24 hours): Temp Pulse Resp BP Pulse Ox 98.1 F 62 20 154/90 H 100 04/19/17 07:48 04/19/17 07:48 04/19/17 07:48 04/19/17 07:48 04/19/17 07:48 Intake and Output: 04/19/17 04/19/17 06:59 18:59 Intake Total 3560 2080 Balance 3560 2080 - Medications Medications: Current Medications Diphenhydramine HCl (Benadryl) 25 mg PO Q3 PRN PRN Reason: Pain, moderate (4-7) Folic Acid (Folic Acid) 1 mg PO DAILY KEVON Hydromorphone HCl (Dilaudid) 0.5 mg IVP Q3H PRN PRN Reason: Pain, moderate (4-7) Last Admin: 04/18/17 20:12 Dose: 0.5 mg Hydromorphone HCl (Dilaudid) 0.5 mg IVP Q3H PRN PRN Reason: Pain, severe (8-10) Dextrose/Sodium Chloride (Dextrose 5%/0.9% Ns 1000 Ml) 1,000 mls @ 200 mls/hr IV .Q5H KEVON Last Admin: 04/19/17 05:29 Dose: 200 mls/hr Multivitamins/Vitamin C (Multi-Delyn Liquid) 5 ml PO DAILY KEVON Pantoprazole Sodium (Protonix Ec Tab) 40 mg PO DAILY KEVON Thiamine HCl (Vitamin B1 Tab) 100 mg PO DAILY KEVON - Labs Labs: 04/19/17 07:50 04/19/17 07:50 - Constitutional Appears: No Acute Distress - Head Exam Head Exam: ATRAUMATIC, NORMOCEPHALIC - Eye Exam Eye Exam: Normal appearance - ENT Exam ENT Exam: Mucous Membranes Moist - Respiratory Exam Respiratory Exam: NORMAL BREATHING PATTERN - Cardiovascular Exam Cardiovascular Exam: REGULAR RHYTHM - GI/Abdominal Exam GI & Abdominal Exam: Guarding (voluntary), Soft, Tenderness (epigastric area), Normal Bowel Sounds. absent: Distended, Firm, Rigid, Hernia, Mass, Rebound - Neurological Exam Neurological Exam: Alert, Awake, Oriented x3 - Psychiatric Exam Psychiatric exam: Normal Affect, Normal Mood - Skin Skin Exam: Dry, Intact, Normal Color, Warm Assessment and Plan - Assessment and Plan (Free Text) Plan: 31 M with alcohol induced pancreatitis and incidental CT findings of intussusception -Patient tolerating Regular diet -Analgesics/Anti-emetics PRN -f/u Upper GI series report -Discussed with Dr. Odalis Holt PGY1 <Oliver Jacobo - Last Filed: 04/21/17 19:11> Objective - Vital Signs/Intake and Output Vital Signs (last 24 hours): Temp Pulse Resp BP Pulse Ox 98.1 F 61 20 133/79 99 04/19/17 23:23 04/19/17 23:23 04/19/17 23:23 04/19/17 23:23 04/19/17 23:23 - Labs Labs: 04/20/17 08:09 04/20/17 08:09 Attending/Attestation - Attestation I have personally seen and examined this patient.: Yes I have fully participated in the care of the patient.: Yes I have reviewed all pertinent clinical information, including history, physical exam and plan: Yes Notes (Text): Pt was seen and examined at bedside Agree with above note and assessment Pt with ETOH Pancreatitis UGI series is normal Pt is asymptomatic Reg diet DC plan continue with current mx Plan d.w pt in detail.
[2017-04-19] MEDS: HYDROmorphone 0.5 mg/0.5 ml ISec IVP PRN (16:34)
[2017-04-19 16:59] VITALS: O2SAT 99
--- NOTE | 2017-04-19 17:00 | RAD ---
Small bowel series History: Intussusception. Comparison: 04/16/2017 Technique: Small bowel series was performed. Findings: Contrast flowed freely through the proximal, mid, and distal small bowel loops. No evidence of gross obstruction. Terminal ileum appeared grossly preserved. The intussusception seen on recent CT scan was not well appreciated on this study. This may be better delineated with a CT scan. Impression: Contrast flowed freely through the proximal, mid, and distal small bowel loops. No evidence of gross obstruction. Terminal ileum appeared grossly preserved. The intussusception seen on recent CT scan was not well appreciated on this study. This may be better delineated with a CT scan if clinically indicated.
--- NOTE | 2017-04-19 19:08 | CP.PCM.PN ---
Subjective - Date & Time of Evaluation Date of Evaluation: 04/19/17 Time of Evaluation: 07:40 - Subjective Subjective: clinically same Objective - Vital Signs/Intake and Output Vital Signs (last 24 hours): Temp Pulse Resp BP Pulse Ox 98.3 F 66 20 151/95 H 99 04/19/17 16:00 04/19/17 16:00 04/19/17 16:00 04/19/17 16:00 04/19/17 16:00 Intake and Output: 04/19/17 04/20/17 18:59 06:59 Intake Total 2079 Balance 2079 - Medications Medications: Current Medications Diphenhydramine HCl (Benadryl) 25 mg PO Q3 PRN PRN Reason: Pain, moderate (4-7) Folic Acid (Folic Acid) 1 mg PO DAILY KEVON Hydromorphone HCl (Dilaudid) 0.5 mg IVP Q3H PRN PRN Reason: Pain, moderate (4-7) Last Admin: 04/19/17 16:34 Dose: 0.5 mg Hydromorphone HCl (Dilaudid) 0.5 mg IVP Q3H PRN PRN Reason: Pain, severe (8-10) Dextrose/Sodium Chloride (Dextrose 5%/0.9% Ns 1000 Ml) 1,000 mls @ 200 mls/hr IV .Q5H KEVON Last Admin: 04/19/17 05:29 Dose: 200 mls/hr Multivitamins/Vitamin C (Multi-Delyn Liquid) 5 ml PO DAILY KEVON Pantoprazole Sodium (Protonix Ec Tab) 40 mg PO DAILY KEVON Thiamine HCl (Vitamin B1 Tab) 100 mg PO DAILY KEVON - Labs Labs: 04/19/17 07:50 04/19/17 07:50 - Constitutional Appears: Well - Head Exam Head Exam: ATRAUMATIC, NORMAL INSPECTION, NORMOCEPHALIC - Eye Exam Eye Exam: EOMI, Normal appearance, PERRL Pupil Exam: NORMAL ACCOMODATION, PERRL - ENT Exam ENT Exam: Mucous Membranes Moist, Normal Exam - Neck Exam Neck Exam: Full ROM, Normal Inspection. absent: Lymphadenopathy - Respiratory Exam Respiratory Exam: Decreased Breath Sounds - Cardiovascular Exam Cardiovascular Exam: REGULAR RHYTHM, +S1, +S2 - GI/Abdominal Exam GI & Abdominal Exam: Soft, Diminished Bowel Sounds - Rectal Exam Rectal Exam: Deferred Assessment and Plan (1) Abdominal pain Status: Acute (2) Abscess Status: Acute (3) Alcohol abuse Status: Acute (4) Alcohol abuse Status: Acute (5) Alcohol dependence Status: Acute (6) Alcohol dependence in controlled environment Status: Acute (7) Alcoholic gastritis Status: Acute (8) Alcoholism Status: Acute (9) Dental caries Status: Acute (10) Depression Status: Acute (11) Depression with suicidal ideation Status: Acute (12) Drug abuse Status: Acute (13) Drug dependence Status: Acute (14) Pancreatitis Status: Acute (15) Pancreatitis Status: Acute (16) Sinusitis Status: Acute (17) Toxic effect of isopropyl alcohol Status: Acute (18) Transaminitis Status: Acute (19) Vomiting Status: Acute - Assessment and Plan (Free Text) Plan: Patient examined. Patient better. Continue thiamine, multivitamins. Continue pain medications. Continue supportive care.
[2017-04-19 23:27] VITALS: BP 133/79; PULSE 61; TEMP 98.1
[2017-04-20] MEDS: Dextrose 5%/0.9% NS 1,000 ML IV SCH ×2 (01:25→06:14)
--- NOTE | 2017-04-20 08:19 | CP.PCM.PN ---
<Andrew Holt - Last Filed: 04/20/17 08:21> Subjective - Date & Time of Evaluation Date of Evaluation: 04/20/17 Time of Evaluation: 08:19 - Subjective Subjective: General Surgery Note for Dr. Jacobo Patient seen and examined at bedside. No acute event overnight. Patient states abdominal pain continues to lessen. He is tolerating regular diet and having normal BMs daily. No other complaints. Denies fever/chills, nausea/ vomiting, and diarrhea. Objective - Vital Signs/Intake and Output Vital Signs (last 24 hours): Temp Pulse Resp BP Pulse Ox 98.1 F 61 20 133/79 99 04/19/17 23:23 04/19/17 23:23 04/19/17 23:23 04/19/17 23:23 04/19/17 23:23 Intake and Output: 04/20/17 04/20/17 06:59 18:59 Intake Total 800 2080 Balance 800 2080 - Medications Medications: Current Medications Diphenhydramine HCl (Benadryl) 25 mg PO Q3 PRN PRN Reason: Pain, moderate (4-7) Folic Acid (Folic Acid) 1 mg PO DAILY KEVON Hydromorphone HCl (Dilaudid) 0.5 mg IVP Q3H PRN PRN Reason: Pain, moderate (4-7) Last Admin: 04/19/17 16:34 Dose: 0.5 mg Hydromorphone HCl (Dilaudid) 0.5 mg IVP Q3H PRN PRN Reason: Pain, severe (8-10) Dextrose/Sodium Chloride (Dextrose 5%/0.9% Ns 1000 Ml) 1,000 mls @ 200 mls/hr IV .Q5H KEVON Last Admin: 04/20/17 06:14 Dose: 200 mls/hr Multivitamins/Vitamin C (Multi-Delyn Liquid) 5 ml PO DAILY KEVON Pantoprazole Sodium (Protonix Ec Tab) 40 mg PO DAILY KEVON Thiamine HCl (Vitamin B1 Tab) 100 mg PO DAILY KEVON - Labs Labs: 04/19/17 07:50 04/19/17 07:50 - Constitutional Appears: Well, No Acute Distress - Head Exam Head Exam: ATRAUMATIC, NORMOCEPHALIC - Eye Exam Eye Exam: EOMI, Normal appearance Pupil Exam: PERRL - ENT Exam ENT Exam: Mucous Membranes Moist - Respiratory Exam Respiratory Exam: NORMAL BREATHING PATTERN - Cardiovascular Exam Cardiovascular Exam: REGULAR RHYTHM - GI/Abdominal Exam GI & Abdominal Exam: Soft, Tenderness (mild in epigastric region), Normal Bowel Sounds. absent: Distended, Firm, Guarding, Rigid - Extremities Exam Extremities Exam: Normal Capillary Refill - Neurological Exam Neurological Exam: Alert, Awake, Oriented x3 - Psychiatric Exam Psychiatric exam: Normal Affect, Normal Mood - Skin Skin Exam: Dry, Intact, Normal Color, Warm Assessment and Plan - Assessment and Plan (Free Text) Plan: 31 M with alcohol induced pancreatitis -Regular diet -Analgesics/Anti-emetics PRN -Upper GI series was unremarkable -No surgical intervention needed at this time -Clear for discharge from surgical standpoint -Discussed with Dr. Odalis Holt PGY1 <Oliver Jacobo - Last Filed: 04/21/17 19:24> Objective - Vital Signs/Intake and Output Vital Signs (last 24 hours): Temp Pulse Resp BP Pulse Ox 98.1 F 61 20 133/79 99 04/19/17 23:23 04/19/17 23:23 04/19/17 23:23 04/19/17 23:23 04/19/17 23:23 - Labs Labs: 04/20/17 08:09 04/20/17 08:09 Attending/Attestation - Attestation I have personally seen and examined this patient.: Yes I have fully participated in the care of the patient.: Yes I have reviewed all pertinent clinical information, including history, physical exam and plan: Yes Notes (Text): Pt was seen and examined at bedside Agree with above note and assessment Pt is asymptomatic at present Pt can be DC home F/u as out pt Plan d.w pt in detail. Risk and benefit explained in detail.
[2017-04-20 08:21] LABS: BASO % 0.6 % (0.0-2.0); EOS # 0.1 K/uL (0.0-0.7); EOS % 2.1 % (0.0-4.0); HEMATOCRIT 37.2 % (35.0-51.0); LYMPH # 1.2 K/uL (1.0-4.3); LYMPH % 17.3 % (20.0-40.0); MEAN CELL VOLUME 95.3 fL (80.0-94.0); MEAN CORPUSCULAR HEMOGLOBIN 33.4 pg (27.0-31.0); MEAN PLATELET VOLUME 9.3 fL (7.2-11.7); MONO # 0.4 K/uL (0.0-0.8); MONO % 5.7 % (0.0-10.0); RED CELL DISTRIBUTION WIDTH 12.5 % (11.5-14.5); WHITE BLOOD COUNT 6.9 K/uL (4.8-10.8)
[2017-04-20 08:33] LABS: CHLORIDE 99 mmol/L (98-107); POTASSIUM 3.3 mmol/L (3.6-5.2); SODIUM 134 mmol/L (132-148)
[2017-04-20 08:35] LABS: AMYLASE 279 U/L (30-110); CARBON DIOXIDE 28 mmol/L (22-30); GFR AFRICAN-AMERICAN > 60
[2017-04-20 08:36] LABS: ALB/GLOB RATIO 1.3 (1.0-2.1); ALKALINE PHOSPHATASE 56 U/L (38-126); ALT/SGPT 70 U/L (21-72); AST/SGOT 81 U/L (17-59); BILIRUBIN,TOTAL 0.6 mg/dL (0.2-1.3); BLOOD UREA NITROGEN 5 mg/dL (9-20); CALCIUM 8.9 mg/dl (8.6-10.4); GLUCOSE,RANDOM 135 mg/dL (75-110); MAGNESIUM 1.6 mg/dL (1.6-2.3); TOTAL PROTEIN 7.1 g/dL (6.3-8.3)
[2017-04-20] MEDS ORDERED: Magnesium Sulfate 1 gm in D5W 1 GM/100 ML BAG IVPB ONE ×2 (09:52→11:33)
[2017-04-20] MEDS ORDERED: Pantoprazole 40 mg EC Tab PO SCH (10:00)
[2017-04-20] MEDS ORDERED: Multiple Vitamins Oral Solution PO SCH (10:00)
--- NOTE | 2017-04-20 10:07 | CP.PCM.PN ---
<LynnSarah Zulma - Last Filed: 04/20/17 10:03> Subjective - Date & Time of Evaluation Date of Evaluation: 04/20/17 Time of Evaluation: 09:00 - Subjective Subjective: PGY3 Medicine Note - Dr. Janet Santos's service: Patient seen and examined at bedside this AM. Patient denies abdominal pain. Patient reports eating his breakfast without nausea, vomiting, diarrhea or constipation. Patient had a normal BM last night and this AM. Patient denies fever, chills, chest pain, SOB. Objective - Vital Signs/Intake and Output Vital Signs (last 24 hours): Temp Pulse Resp BP Pulse Ox 98.1 F 61 20 133/79 99 04/19/17 23:23 04/19/17 23:23 04/19/17 23:23 04/19/17 23:23 04/19/17 23:23 Intake and Output: 04/20/17 04/20/17 06:59 18:59 Intake Total 800 2080 Balance 800 2080 - Medications Medications: Current Medications Diphenhydramine HCl (Benadryl) 25 mg PO Q3 PRN PRN Reason: Pain, moderate (4-7) Folic Acid (Folic Acid) 1 mg PO DAILY KEVON Hydromorphone HCl (Dilaudid) 0.5 mg IVP Q3H PRN PRN Reason: Pain, moderate (4-7) Last Admin: 04/19/17 16:34 Dose: 0.5 mg Hydromorphone HCl (Dilaudid) 0.5 mg IVP Q3H PRN PRN Reason: Pain, severe (8-10) Magnesium Sulfate/Dextrose (Magnesium Sulfate 1 Gm/100 Ml D5w) 1 gm in 100 mls @ 100 mls/hr IVPB ONCE ONE Stop: 04/20/17 10:51 Multivitamins/Vitamin C (Multi-Delyn Liquid) 5 ml PO DAILY KEVON Pantoprazole Sodium (Protonix Ec Tab) 40 mg PO DAILY KEVON Potassium Chloride (K-Dur 20 Meq Er Tab) 40 meq PO ONCE ONE Stop: 04/20/17 12:01 Thiamine HCl (Vitamin B1 Tab) 100 mg PO DAILY KEVON - Labs Labs: 04/20/17 08:09 04/20/17 08:09 - Constitutional Appears: Non-toxic, No Acute Distress - Head Exam Head Exam: NORMAL INSPECTION - Eye Exam Eye Exam: EOMI - ENT Exam ENT Exam: Mucous Membranes Moist - Respiratory Exam Respiratory Exam: Clear to Ausculation Bilateral, NORMAL BREATHING PATTERN. absent: Rales, Rhonchi, Wheezes - Cardiovascular Exam Cardiovascular Exam: REGULAR RHYTHM, +S1, +S2. absent: Gallop, Rubs, Murmur - GI/Abdominal Exam GI & Abdominal Exam: Soft, Normal Bowel Sounds. absent: Tenderness - Extremities Exam Extremities Exam: absent: Pedal Edema - Neurological Exam Neurological Exam: Alert, Awake, Oriented x3 - Psychiatric Exam Psychiatric exam: Normal Affect, Normal Mood - Skin Skin Exam: Normal Color, Warm Assessment and Plan - Assessment and Plan (Free Text) Assessment: Acute Pancreatitis Likely secondary to ETOH use disorder GI consult - Dr. Mooney - help appreciated Advance to low fat diet Encourage fluid intake D5NS 200ml/hr Dilaudid 0.5mg IVP Q4 PRN Pain, severe not taken ETOH use disorder Outpatient rehab Counselled on ETOH abstinence Thiamine 100mg PO daily Folic Acid 1mg PO daily MVI PO daily Jejuno-Jejunal Intussusception Seen on CT scan Surgery consult - Dr. Jacobo - help appreciated Small Bowel X ray - no gross obstruction. terminal ileum appeared grossly preserved. intussusception seen on recent CT was not well appreciated (please see full report) Cleared for discharge from surgical perspective Hypokalemia Mg 1.6 K 3.2 Mg sulfate 1 bag IVPB Potassium Chloride 40mEQ PO once Prophylaxis Protonix 40mg PO daily Ambulate SCDs D/C home today All medical management per Dr. Janet Santos <Laron Santos - Last Filed: 04/20/17 14:28> Objective - Vital Signs/Intake and Output Vital Signs (last 24 hours): Temp Pulse Resp BP Pulse Ox 98.1 F 61 20 133/79 99 04/19/17 23:23 04/19/17 23:23 04/19/17 23:23 04/19/17 23:23 04/19/17 23:23 Intake and Output: 04/20/17 04/20/17 06:59 18:59 Intake Total 800 2080 Balance 800 2080 - Labs Labs: 04/20/17 08:09 04/20/17 08:09 Assessment and Plan (1) Abdominal pain Status: Acute (2) Abscess Status: Acute (3) Alcohol abuse Status: Acute (4) Alcohol abuse Status: Acute (5) Alcohol dependence Status: Acute (6) Alcohol dependence in controlled environment Status: Acute (7) Alcoholic gastritis Status: Acute (8) Alcoholism Status: Acute (9) Dental caries Status: Acute (10) Depression Status: Acute (11) Depression with suicidal ideation Status: Acute (12) Drug abuse Status: Acute (13) Drug dependence Status: Acute (14) Pancreatitis Status: Acute (15) Pancreatitis Status: Acute (16) Sinusitis Status: Acute (17) Toxic effect of isopropyl alcohol Status: Acute (18) Transaminitis Status: Acute (19) Vomiting Status: Acute Attending/Attestation - Attestation I have personally seen and examined this patient.: Yes I have fully participated in the care of the patient.: Yes I have reviewed all pertinent clinical information, including history, physical exam and plan: Yes Notes (Text): 04/20/17 14:28 Patient examined. No abdominal pain present. Continue thiamine, multivitamins and folic acid. Continue pain medications. Continue supportive care.
[2017-04-20] MEDS ORDERED: Potassium Chloride 20 mEq ER Tab PO ONE (12:00)
== END 2017-04-20 12:45 | disposition home or self-care (01) | DRG 557 ==
LOC: C.ER 11:52 → C.9E 16:45 → C.3T 19:12
PROVIDERS: ADMIT Internal Medicine Nephrology; ATTEND Internal Medicine Nephrology
DX: K85.20 Alcohol induced acute pancreatitis without necrosis or infection (principal); D66 Hereditary factor VIII deficiency; R45.851 Suicidal ideations; K56.1 Intussusception; F10.288 Alcohol dependence with other alcohol-induced disorder; E87.6 Hypokalemia; F12.90 Cannabis use, unspecified, uncomplicated; F17.210 Nicotine dependence, cigarettes, uncomplicated; Y90.2 Blood alcohol level of 40-59 mg/100 ml; F41.9 Anxiety disorder, unspecified; F32.9 Major depressive disorder, single episode, unspecified; F43.10 Post-traumatic stress disorder, unspecified; K86.0 Alcohol-induced chronic pancreatitis; K29.20 Alcoholic gastritis without bleeding; K02.9 Dental caries, unspecified; J01.90 Acute sinusitis, unspecified

== ENCOUNTER 2017-07-09 15:39 | Emergency (ER) | payer OTHER ==
[2017-07-09 15:54] VITALS: TEMP 98; O2SAT 100
[2017-07-09] MEDS ORDERED: Sodium Chloride 0.9% 1,000 ML IV ONE (16:20)
[2017-07-09] MEDS ORDERED: Morphine 4 MG/ML VIAL ONE (16:31)
[2017-07-09] MEDS ORDERED: Sodium Chloride 0.9% 1,000 ML ONE (16:32)
[2017-07-09] MEDS ORDERED: Iohexol 300 100 ML IJ ONE (16:42)
[2017-07-09 16:55] LABS: BASO % 0.5 % (0.0-2.0); EOS % 0.4 % (0.0-4.0); HEMOGLOBIN 16.5 g/dL (12.0-18.0); LYMPH # 1.3 K/uL (1.0-4.3); LYMPH % 15.1 % (20.0-40.0); MEAN CORPUSCULAR HEMOGLOBIN 32.6 pg (27.0-31.0); MEAN CORPUSCULAR HGB CONC 35.4 g/dL (33.0-37.0); MONO # 0.8 K/uL (0.0-0.8); MONO % 8.9 % (0.0-10.0); NEUT # 6.6 K/uL (1.8-7.0); NEUT % 75.1 % (50.0-75.0); NRBC % 0.1 % (0.0-2.0); RBC 5.05 Mil/uL (4.40-5.90); RED CELL DISTRIBUTION WIDTH 12.2 % (11.5-14.5); WHITE BLOOD COUNT 8.8 K/uL (4.8-10.8)
[2017-07-09 17:04] LABS: ALB/GLOB RATIO 1.2 (1.0-2.1); ALBUMIN 4.6 g/dL (3.5-5.0); CALCIUM 10.1 mg/dl (8.6-10.4); GFR AFRICAN-AMERICAN > 60; GFR NON-AFRICAN AMERICAN > 60; LIPASE 490 U/L (23-300)
[2017-07-09 17:07] LABS: ALT/SGPT 34 U/L (21-72); AST/SGOT 45 U/L (17-59); BLOOD UREA NITROGEN 12 mg/dL (9-20)
--- NOTE | 2017-07-09 17:22 | C.PDOC ---
History Of Present Illness 31 y/o male, with history of alcoholic pancreatitis, presents to the ER complaining of epigastric pain. Patient states that the pain is similar to episodes of pancreatitis in the past. Patient states that he had nausea and vomiting today. Patient states his last alcoholic drink was last night. Patient denies having fever, blood in stool/urine, and other complaints. Chief Complaint (Nursing): Abdominal Pain History Per: Patient History/Exam Limitations: no limitations Onset/Duration Of Symptoms: Hrs Current Symptoms Are (Timing): Still Present Severity: Moderate Past Medical History Reviewed: Historical Data, Nursing Documentation, Vital Signs Vital Signs: Last Vital Signs Temp 98 F 07/09/17 15:51 Pulse 59 L 07/09/17 15:51 Resp 26 H 07/09/17 15:51 BP 178/108 H 07/09/17 15:51 Pulse Ox 100 07/09/17 17:37 - Medical History PMH: Anxiety, Depression, Pancreatitis, Post Traumatic Stress Disorder (mom ) Denies: HTN, Chronic Kidney Disease, Seizures, Sexually Transmitted Disease Surgical History: No Surg Hx - [facility] Procedures ALCOHOL DETOXIFICATION (02/13/15) DETOXIFICATION SERVICES FOR SUBSTANCE ABUSE TREATMENT (03/10/15) Family History: States: Diabetes, Hypertension - Social History Hx Tobacco Use: Yes Hx Alcohol Use: Yes (3 to 4 24 ounce cans beers daily) Hx Substance Use: (marijuana) - Immunization History Hx Tetanus Toxoid Vaccination: No Hx Influenza Vaccination: No Hx Pneumococcal Vaccination: No Review Of Systems Except As Marked, All Systems Reviewed And Found Negative. Constitutional: Negative for: Fever, Chills Gastrointestinal: Positive for: Nausea, Vomiting, Abdominal Pain Genitourinary: Negative for: Dysuria, Hematuria Physical Exam - Physical Exam Appears: Non-toxic, No Acute Distress Skin: Normal Color, Warm Head: Atraumatic, Normacephalic Eye(s): bilateral: Normal Inspection Nose: Normal Oral Mucosa: Moist Neck: Supple Chest: Symmetrical Cardiovascular: Rhythm Regular Respiratory: Normal Breath Sounds, No Accessory Muscle Use, No Rales, No Rhonchi , No Wheezing Gastrointestinal/Abdominal: Normal Exam, Bowel Sounds (soft bowel sounds), Soft , Tenderness (diffuse abdominal tenderness) Extremity: Normal ROM Neurological/Psych: Oriented x3, Normal Speech, Normal Motor, Normal Sensation ED Course And Treatment - Laboratory Results Result Diagrams: 07/09/17 16:46 07/09/17 16:46 O2 Sat by Pulse Oximetry: 100 (RA) Pulse Ox Interpretation: Normal Medical Decision Making Medical Decision Making: Plan: --Labs --CT -Abd. & Pelv. Disposition - Disposition Referrals: Luis Buckley Samra, [Non-Staff] - Disposition: HOME/ ROUTINE Disposition Time: 18:10 Condition: IMPROVED Additional Instructions: Thank you for letting us take care of you today. The emergency medical care you received today was directed at your acute symptoms. If you were prescribed any medication, please fill it and take as directed. It may take several days for your symptoms to resolve. Return to the Emergency Department if your symptoms worsen, do not improve, or if you have any other problems. Please contact your doctor or call one of the physicians/clinics you have been referred to that are listed on the Patient Visit Information form that is included in your discharge packet. Bring any paperwork you were given at discharge with you along with any medications you are taking to your follow up visit. Our treatment cannot replace ongoing medical care by a primary care provider (PCP) outside of the emergency department. Thank you for allowing the [facility] team to be part of your care today. Follow up with your doctor in 3-4 days for re-evaluation and further management. Prescriptions: Ondansetron ODT [Zofran ODT] 4 mg PO Q8 PRN #20 odt PRN Reason: Nausea/Vomiting Instructions: Pancreatitis (ED), Abuse of Alcohol (ED) Forms: [employer] ([employer]) - Clinical Impression Clinical Impression: Pancreatitis - Scribe Statement The provider has reviewed the documentation as recorded by the [place] Provider Attestation: All medical record entries made by the Amadoibe were at my direction and personally dictated by me. I have reviewed the chart and agree that the record accurately reflects my personal performance of the history, physical exam, medical decision making, and the department course for this patient. I have also personally directed, reviewed, and agree with the discharge instructions and disposition.
--- NOTE | 2017-07-09 18:09 | CT ---
PROCEDURE: CT Abdomen and Pelvis with contrast HISTORY: Diffuse abdominal pain. Relevant medical history: Pancreatitis. COMPARISON: 04/16/2017 CT abdomen and pelvis. TECHNIQUE: Contrast dose: 100 cc Omnipaque 300. Radiation dose: Total exam DLP = 71.46 mGy-cm. This CT exam was performed using one or more of the following dose reduction techniques: Automated exposure control, adjustment of the mA and/or kV according to patient size, and/or use of iterative reconstruction technique. FINDINGS: LOWER THORAX: Unremarkable. LIVER: Hepatomegaly hepatic steatosis without focal abnormality. GALLBLADDER AND BILE DUCTS: Unremarkable. PANCREAS: Resolution of previously identified pancreatitis. No evidence of acute or necrotizing pancreatitis. The pancreatic head remains prominent but there is no mass or other abnormality. SPLEEN: Unremarkable. ADRENALS: Unremarkable. No mass. KIDNEYS AND URETERS: Unremarkable. No hydronephrosis. No solid mass. VASCULATURE: Unremarkable. No aortic aneurysm. BOWEL: Unremarkable. No obstruction. No gross mural thickening. APPENDIX: Normal appendix. PERITONEUM: Unremarkable. No free fluid. No free air. LYMPH NODES: Unremarkable. No enlarged lymph nodes. BLADDER: Unremarkable. REPRODUCTIVE: Unremarkable. BONES: No acute fracture. OTHER FINDINGS: None. IMPRESSION: Resolution of previously identified acute pancreatitis. Resolution of jejuno jejunal intussusception. Hepatomegaly/hepatic steatosis without focal abnormality.
[2017-07-09 19:14] VITALS: BP 150/95; PULSE 73; RESP 10
== END 2017-07-09 19:13 | disposition home or self-care (01) ==
LOC: C.ER 15:39
DX: K85.90 Acute pancreatitis without necrosis or infection, unspecified (principal)
CPT/HCPCS: 74177; 80053; 83690; 85025; 96361; 96374; 96375; 99284; J2270; J2405; J7040; Q9967

== ENCOUNTER 2018-04-14 09:45 | Emergency (ER) | payer MEDICAID, OTHER ==
[2018-04-14 09:53] VITALS: BMI 26.6
--- NOTE | 2018-04-14 10:02 | C.PDOC ---
History Of Present Illness 32 yr old male w/ hx of pancreatitis, etoh abuse p/w abdominal pain. Pt notes abdominal pain is epigastric, radiates to back along same area, not to chest. Similiar occurence previously for which he was found to have pancreatitis. Pain started this morning at 5 AM. x4 episodes of vomiting, non-bloody, non-bilious. No dark or bloody stool. No chest pain or sob. No constipation or diarrhea. No recent abx usage or new medications. No recent NSAID usage. No hx of ulcers. No trauma or falls. No fever, chills or night sweats. No current depression, SI or HI. No other complaints. Time Seen by Provider: 04/14/18 10:01 Chief Complaint (Nursing): Abdominal Pain Past Medical History Vital Signs: Last Vital Signs Temp 98.6 F 04/14/18 09:54 Pulse 85 04/14/18 09:54 Resp 19 04/14/18 09:54 BP 146/109 H 04/14/18 09:54 Pulse Ox 99 04/14/18 09:54 - Medical History PMH: Anxiety, Depression, Pancreatitis, Post Traumatic Stress Disorder (mom ) Denies: HTN, Chronic Kidney Disease, Seizures, Sexually Transmitted Disease - [facility] Procedures ALCOHOL DETOXIFICATION (02/13/15) DETOXIFICATION SERVICES FOR SUBSTANCE ABUSE TREATMENT (03/10/15) Family History: States: Unknown Family Hx, Diabetes, Hypertension - Social History Hx Tobacco Use: Yes Hx Alcohol Use: Yes (3 to 4 24 ounce cans beers daily) Hx Substance Use: Yes (marijuana) - Immunization History Hx Tetanus Toxoid Vaccination: No Hx Influenza Vaccination: No Hx Pneumococcal Vaccination: No Review Of Systems Constitutional: Negative for: Fever, Chills, Sweats Eyes: Negative for: Pain ENT: Negative for: Ear Pain, Ear Discharge, Nose Congestion, Mouth Pain Cardiovascular: Negative for: Chest Pain, Palpitations, Orthopnea, Paroxysmal Noc. Dyspnea, Edema, Light Headedness Respiratory: Negative for: Cough, Shortness of Breath, SOB with Excertion, Pleuritic Pain Gastrointestinal: Positive for: Nausea, Vomiting, Abdominal Pain. Negative for: Diarrhea, Constipation, Melena, Hematochezia, Hematemesis Genitourinary: Negative for: Dysuria, Frequency, Incontinence, Hematuria Musculoskeletal: Negative for: Neck Pain, Shoulder Pain, Back Pain Neurological: Negative for: Weakness, Numbness, Confusion Psych: Negative for: Anxiety, Depression, Psychosis, Suicidal ideation Physical Exam - Physical Exam Appears: Well, Non-toxic, No Acute Distress Skin: Normal Color, Warm, No Dry, No Diaphoretic Head: Atraumatic, Normacephalic, No Tenderness, No Laceration Eye(s): bilateral: Normal Inspection Ear(s): Bilateral: Normal Nose: Normal Oral Mucosa: Moist Tongue: Normal Appearing Lips: Normal Appearing Teeth: Normal Dentition Gingiva: Normal Appearing Throat: Normal, No Erythema, No Exudate Neck: Normal, Normal ROM, No Decreased ROM, Trachea Midline Chest: Symmetrical, No Deformity Cardiovascular: Rhythm Regular Respiratory: Normal Breath Sounds Gastrointestinal/Abdominal: Normal Exam, Soft, Tenderness (epigastric, ruq), No Mass, No Distention, No Guarding Back: Normal Inspection, No CVA Tenderness, No Vertebral Tenderness Extremity: Normal ROM, No Tenderness, Capillary Refill (normal) Extremity: Bilateral: Atraumatic Pulses: Left Dorsalis Pedis: Normal, Right Dorsalis Pedis: Normal Neurological/Psych: Oriented x3, Normal Speech, Normal Cognition, Normal Cranial Nerves, No Cerebellar Signs, Normal Motor ED Course And Treatment - Laboratory Results Result Diagrams: 04/14/18 10:58 04/14/18 10:58 O2 Sat by Pulse Oximetry: 99 Medical Decision Making Medical Decision Makin yr old male p/w abdominal pain similiar to previous episodes of pancreatitis. Given RUQ and epigastric pain on exam will seet RUQ us and laps for biliary disease vs pancreatitis suspicion. No CP or sob. No dark or bloody stool. Pending imaging and labs. 1337 Mildly elevated lipase, not 3x higher than normal diagnostic of pancreatitis. US w/ possible hepatcellular disease, however given clinical NAD and improvement as well as otherwise benign US w/ out biliary diseases will likely have pt f/u GI outpt. pt notes improvement of pain will po trial 1411 Pain improved, tolerating clears. given strict instruction to f/u w/ GI and abstain from ETOH as well as return indications clear for d/c home Disposition - Disposition Referrals: [facility] [Outside] Meng Tran MD [Staff Provider] - Disposition: HOME/ ROUTINE Disposition Time: 13:39 Condition: GOOD Additional Instructions: ALEXI SHERMAN, thank you for letting us take care of you today. Your provider was David Oden and you were treated for STOMACH PAIN. The emergency medical care you received today was directed at your acute symptoms. If you were prescribed any medication, please fill it and take as directed. It may take several days for your symptoms to resolve. Return to the Emergency Department if your symptoms worsen, do not improve, or if you have any other problems. Please contact your doctor or call one of the physicians/clinics you have been referred to that are listed on the Patient Visit Information form that is included in your discharge packet. Bring any paperwork you were given at d ischarge with you along with any medications you are taking to your follow up visit. Our treatment cannot replace ongoing medical care by a primary care provider outside of the emergency department. Thank you for allowing the [facility] team to be part of your care today. If you had an X-Ray or CT scan: A Radiologist will review the ED reading if any change in treatment is needed we will contact you. If you had a blood, urine, or wound culture: It will take several days for the results, if any change in treatment is needed we will contact you. If you had an STI test: It will take 48 hours for the results. Please call after 1 week if you have not heard back. Instructions: Pancreatitis, Gastritis Forms: [employer] (Austrian) - Clinical Impression Clinical Impression: LFT elevation, Gastritis, Pancreatitis
[2018-04-14] MEDS ORDERED: Sodium Chloride 0.9% 1,000 ML IV SCH ×2 (10:15→13:30)
[2018-04-14] MEDS ORDERED: Sodium Chloride 0.9% 1,000 ML ONE ×2 (10:37→13:48)
[2018-04-14 11:10] LABS: BASO # 0.1 K/uL (0.0-0.2); BASO % 0.7 % (0.0-2.0); EOS % 0.2 % (0.0-4.0); HEMOGLOBIN 17.1 g/dL (12.0-18.0); LYMPH % 10.6 % (20.0-40.0); MEAN CELL VOLUME 90.5 fL (80.0-94.0); MEAN CORPUSCULAR HEMOGLOBIN 31.5 pg (27.0-31.0); MEAN CORPUSCULAR HGB CONC 34.8 g/dL (33.0-37.0); MONO # 0.7 K/uL (0.0-0.8); MONO % 7.8 % (0.0-10.0); NEUT # 7.4 K/uL (1.8-7.0); NEUT % 80.7 % (50.0-75.0); NRBC % 0.2 % (0.0-2.0); RBC 5.43 Mil/uL (4.40-5.90); RED CELL DISTRIBUTION WIDTH 12.5 % (11.5-14.5); WHITE BLOOD COUNT 9.1 K/uL (4.8-10.8)
[2018-04-14 11:18] LABS: GRANULAR CAST 3 /lpf (0-1); SQUAMOUS EPITHIAL 1 /hpf (0-5); URINE BILIRUBIN NEGATIVE (NEGATIVE); URINE BLOOD NEGATIVE (NEGATIVE); URINE CLARITY Clear (Clear); URINE COLOR Yellow (YELLOW); URINE GLUCOSE (UA) NORMAL (Normal); URINE HYALINE CAST 0-2 /lpf (0-2); URINE LEUKOCYTE ESTERASE NEG Leu/uL (Negative); URINE PROTEIN 1+ mg/dL (NEGATIVE); URINE UROBILINOGEN NORMAL mg/dL (0.2-1.0)
[2018-04-14 11:24] LABS: ALB/GLOB RATIO 1.2 (1.0-2.1); ALBUMIN 4.5 g/dL (3.5-5.0); ALT/SGPT 114 U/L (21-72); AST/SGOT 165 U/L (17-59); BLOOD UREA NITROGEN 13 mg/dL (9-20); GFR NON-AFRICAN AMERICAN > 60; LIPASE 401 U/L (23-300)
[2018-04-14] MEDS ORDERED: Morphine 4 MG/ML VIAL ONE (11:27)
[2018-04-14 12:02] VITALS: RESP 18
--- NOTE | 2018-04-14 12:56 | US ---
Date of service: 04/14/2018 HISTORY: ruq pain COMPARISON: Comparison made with prior abdominal ultrasound and CT scan abdomen pelvis dated 01/03/2017 and 07/09/2017 respectively. TECHNIQUE: Sonographic evaluation of the right upper quadrant of the abdomen. FINDINGS: LIVER: Measures 18 cm in length. Liver demonstrates smooth contour though increased echotexture likely due to fatty infiltration however other infiltrative hepatocellular disease process not excluded. No mass. No intrahepatic bile duct dilatation. GALLBLADDER: Unremarkable. No gallstones. COMMON BILE DUCT: Measures 1.4 mm. No stones. No dilatation. PANCREAS: Evaluation of the pancreas is limited due to body habitus and bowel gas. RIGHT KIDNEY: Measures 11.9 x 4.5 x 5.4 cm in length. Normal echogenicity. No calculus, mass, or hydronephrosis. AORTA: No aneurysmal dilatation. IVC: Unremarkable. OTHER FINDINGS: None . IMPRESSION: Findings consistent with fatty infiltration however other infiltrative hepatocellular disease process not excluded. Borderline hepatomegaly. Limited evaluation of the pancreas due to body habitus and bowel gas.
[2018-04-14 14:54] VITALS: BP 150/81; PULSE 65; TEMP 98.1; O2SAT 100
== END 2018-04-14 15:18 | disposition home or self-care (01) ==
LOC: C.ER 09:45
DX: K29.70 Gastritis, unspecified, without bleeding (principal); K85.90 Acute pancreatitis without necrosis or infection, unspecified; R79.89 Other specified abnormal findings of blood chemistry
CPT/HCPCS: 76705; 80053; 81001; 83690; 83735; 85025; 96374; 96375; 99285; J2270; J2405; J7030

== ENCOUNTER 2018-06-13 03:11 | Emergency (ER) | payer MEDICAID ==
[2018-06-13 03:12] VITALS: BMI 26.6
[2018-06-13 03:38] VITALS: O2SAT 97
--- NOTE | 2018-06-13 03:48 | C.PDOC ---
History Of Present Illness 32 y/o male presents to the ED complaining of fever, bodyaches, cough, and vomiting since yesterday. (+) sick contact in the patients daughter, who has similar symptoms. Patient reports taking Theraflu at 10:00pm. Otherwise he denies any SOB, chest pain, headaches, diarrhea, or urinary symptoms. HPI: Influenza Time Seen by Provider: 06/13/18 03:38 Chief Complaint: Flu-like Symptoms Chief Complaint (Provider): Flu-like Symptoms History Per: Patient Exam Limitations: no limitations Onset/Duration Of Symptoms: Days (x 1) Symptoms include: fever, bodyaches, cough, vomiting Sick Contacts (Context): Family Member(s) (infant daughter) Past Medical History Reviewed: Historical Data, Nursing Documentation, Vital Signs Vital Signs: Last Vital Signs Temp 97.9 F 06/13/18 03:27 Pulse 95 H 06/13/18 03:27 Resp 20 06/13/18 03:27 BP 145/102 H 06/13/18 03:27 Pulse Ox 97 06/13/18 03:27 - Medical History PMH: Anxiety, Asthma, Depression, Pancreatitis, Post Traumatic Stress Disorder (mom ) Denies: HTN, Chronic Kidney Disease, Seizures, Sexually Transmitted Disease - [facility] Procedures ALCOHOL DETOXIFICATION (02/13/15) DETOXIFICATION SERVICES FOR SUBSTANCE ABUSE TREATMENT (03/10/15) Family History: States: Diabetes, Hypertension - Social History Hx Tobacco Use: Yes Hx Alcohol Use: Yes (3 to 4 24 ounce cans beers daily) Hx Substance Use: Yes (marijuana) - Immunization History Hx Tetanus Toxoid Vaccination: No Hx Influenza Vaccination: No Hx Pneumococcal Vaccination: No Review Of Systems Constitutional: Positive for: Fever Eyes: Negative for: Vision Change ENT: Negative for: Ear Pain Cardiovascular: Negative for: Chest Pain, Palpitations Respiratory: Positive for: Cough. Negative for: Shortness of Breath, Wheezing Gastrointestinal: Positive for: Vomiting. Negative for: Diarrhea, Hematochezia, Hematemesis Genitourinary: Negative for: Dysuria, Hematuria Neurological: Negative for: Weakness, Headache Physical Exam - Physical Exam Appears: Non-toxic, No Acute Distress Skin: Normal Color, Warm, Dry Head: Atraumatic, Normacephalic Eye(s): bilateral: Normal Inspection, PERRL, EOMI Oral Mucosa: Moist Throat: Normal, No Erythema Neck: Normal ROM, Supple Chest: Symmetrical Cardiovascular: Rhythm Regular, No Murmur Respiratory: Normal Breath Sounds, No Rales, No Rhonchi, No Wheezing Gastrointestinal/Abdominal: Soft, No Tenderness, No Distention Extremity: Bilateral: Normal Color And Temperature, Normal ROM Neurological/Psych: Oriented x3, Normal Speech - ECG O2 Sat by Pulse Oximetry: 97 (on RA) Pulse Ox Interpretation: Normal - Progress ED Course And Treament: Patient treated empirically with 75 mg PO Tamiflu, and given 600 mg PO Motrin for pain. Condition: Re-examined, Improved Disposition - Disposition Referrals: [facility] at [facility] [Outside] Disposition: HOME/ ROUTINE Disposition Time: 05:10 Condition: STABLE Additional Instructions: Please increase fluids/ Bed rest Take medications as directed Return to ER if worse Prescriptions: Benzonatate [Tessalon Perles] 200 mg PO TID #14 sgl Cetirizine HCl [Zyrtec] 10 mg PO DAILY #14 capsule Ibuprofen [Motrin] 600 mg PO Q6H #30 tab Oseltamivir Cap [Tamiflu] 75 mg PO BID #10 cap Instructions: Flu, Adult (DC) Forms: [employer] (Chinese) - Clinical Impression Clinical Impression: Influenza-like illness - 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 - Scribe Statement The provider has reviewed the documentation as recorded by the Scribandressa Mesa All medical record entries made by the Scribe were at my direction and personally dictated by me. I have reviewed the chart and agree that the record accurately reflects my personal performance of the history, physical exam, medical decision making, and the department course for this patient. I have also personally directed, reviewed, and agree with the discharge instructions and disposition.
[2018-06-13 05:18] VITALS: BP 122/82; PULSE 76; RESP 18; TEMP 98.2
== END 2018-06-13 06:47 | disposition home or self-care (01) ==
LOC: C.ER 03:11
DX: J11.1 Influenza due to unidentified influenza virus with other respiratory manifestations (principal)

== ENCOUNTER 2018-09-10 00:01 | Inpatient (IN) | payer MEDICAID ==
[2018-09-10 00:01] VITALS: BMI 26.6
[2018-09-10] MEDS ORDERED: Sodium Chloride 0.9% 500 ML IV ONE ×2 (01:16→01:25)
[2018-09-10 01:54] LABS: BASO % 0.7 % (0.0-2.0); EOS % 1.2 % (0.0-4.0); HEMOGLOBIN 16.2 g/dL (12.0-18.0); LYMPH # 1.8 K/uL (1.0-4.3); LYMPH % 44.1 % (20.0-40.0); MEAN CELL VOLUME 93.3 fL (80.0-94.0); MEAN CORPUSCULAR HEMOGLOBIN 31.9 pg (27.0-31.0); MEAN CORPUSCULAR HGB CONC 34.2 g/dL (33.0-37.0); MEAN PLATELET VOLUME 8.6 fL (7.2-11.7); MONO # 0.4 K/uL (0.0-0.8); MONO % 9.8 % (0.0-10.0); NEUT # 1.8 K/uL (1.8-7.0); NEUT % 44.2 % (50.0-75.0); RBC 5.06 Mil/uL (4.40-5.90); RED CELL DISTRIBUTION WIDTH 12.3 % (11.5-14.5); WHITE BLOOD COUNT 4.1 K/uL (4.8-10.8)
[2018-09-10 01:56] LABS: URINE BACTERIA RARE (<OCC); URINE BILIRUBIN NEGATIVE (NEGATIVE); URINE BLOOD NEGATIVE (NEGATIVE); URINE CLARITY Clear (Clear); URINE COLOR Straw (YELLOW); URINE GLUCOSE (UA) NORMAL (Normal); URINE LEUKOCYTE ESTERASE NEG Leu/uL (Negative); URINE PROTEIN NEGATIVE (NEGATIVE); URINE UROBILINOGEN NORMAL mg/dL (0.2-1.0)
[2018-09-10 02:32] LABS: BARBITURATES, UR NEGATIVE (NEGATIVE); BENZODIAZEPINES, UR NEGATIVE (NEGATIVE); OPIATES, UR NEGATIVE (NEGATIVE); PHENCYCLIDINE, UR NEGATIVE (NEGATIVE)
[2018-09-10 02:52] LABS: ALB/GLOB RATIO 1.2 (1.0-2.1); BLOOD UREA NITROGEN 12 mg/dL (9-20); CALCIUM 8.2 mg/dl (8.6-10.4); GFR NON-AFRICAN AMERICAN > 60; LIPASE 379 U/L (23-300)
[2018-09-10 03:01] LABS: ALT/SGPT 75 U/L (21-72); AST/SGOT 126 U/L (17-59)
--- NOTE | 2018-09-10 03:44 | C.PDOC ---
History Of Present Illness 33 year old male with PMhx of chronic alcoholism and pacreatitis presents to the ED c/o intermittent diffuse abdominal pain for the past week. Patient reports pain worsened today after he drank some beers. Patient also requesting detox. Patient denies Si/HI, hallucinations, other medical complaints, dysuria, hematuria. Time Seen by Provider: 09/10/18 00:55 Chief Complaint (Nursing): Abdominal Pain History Per: Patient History/Exam Limitations: no limitations Onset/Duration Of Symptoms: Days Current Symptoms Are (Timing): Still Present Context: Other (alcohol) Location Of Pain/Discomfort: Diffuse Quality Of Discomfort: "Pain" Associated Symptoms: Nausea, Vomiting. denies: Fever, Chills, Diarrhea, Back Pain, Urinary Symptoms Recent travel outside of the [place]: No Additional History Per: Patient Past Medical History Reviewed: Historical Data, Nursing Documentation, Vital Signs Vital Signs: Last Vital Signs Temp 98.3 F 09/10/18 02:48 Pulse 76 09/10/18 02:48 Resp 18 09/10/18 02:48 BP 137/98 H 09/10/18 02:48 Pulse Ox 99 09/10/18 02:48 - Medical History PMH: Anxiety, Asthma, Depression, Pancreatitis, Post Traumatic Stress Disorder Denies: HTN, Chronic Kidney Disease, Seizures, Sexually Transmitted Disease Surgical History: No Surg Hx - [facility] Procedures ALCOHOL DETOXIFICATION (02/13/15) DETOXIFICATION SERVICES FOR SUBSTANCE ABUSE TREATMENT (03/10/15) Family History: States: Unknown Family Hx, Diabetes, Hypertension - Social History Hx Tobacco Use: Yes Hx Alcohol Use: Yes (3 to 4 24 ounce cans beers daily) Hx Substance Use: Yes (marijuana) - Immunization History Hx Tetanus Toxoid Vaccination: No Hx Influenza Vaccination: No Hx Pneumococcal Vaccination: No Review Of Systems Constitutional: Negative for: Fever, Chills Cardiovascular: Negative for: Chest Pain Respiratory: Negative for: Shortness of Breath Gastrointestinal: Positive for: Abdominal Pain. Negative for: Nausea, Vomiting, Diarrhea Genitourinary: Negative for: Dysuria Musculoskeletal: Negative for: Back Pain Skin: Negative for: Rash Physical Exam - Physical Exam Appears: Non-toxic, No Acute Distress Skin: Normal Color, Warm, Dry Head: Atraumatic, Normacephalic Eye(s): bilateral: Normal Inspection Oral Mucosa: Moist Neck: Normal ROM, Supple Chest: Symmetrical Cardiovascular: Rhythm Regular Respiratory: Normal Breath Sounds, No Rales, No Rhonchi, No Wheezing Gastrointestinal/Abdominal: Soft, Tenderness (minimal diffuse), No Guarding, No Rebound Back: No CVA Tenderness Extremity: Normal ROM, No Tenderness, No Swelling Neurological/Psych: Oriented x3, Normal Speech, Normal Cognition Gait: Steady ED Course And Treatment - Laboratory Results Result Diagrams: 09/10/18 01:47 09/10/18 02:31 Lab Results: Total Bilirubin 0.5 mg/dL (0.2-1.3) 09/10/18 02:31 AST 126 U/L (17-59) H D 09/10/18 02:31 ALT 75 U/L (21-72) H D 09/10/18 02:31 Alkaline Phosphatase 65 U/L (38-126) 09/10/18 02:31 Total Protein 7.4 g/dL (6.3-8.3) 09/10/18 02:31 Albumin 4.0 g/dL (3.5-5.0) 09/10/18 02:31 Globulin 3.5 gm/dL (2.2-3.9) 09/10/18 02:31 Albumin/Globulin Ratio 1.2 (1.0-2.1) 09/10/18 02:31 Lipase 379 U/L (23-300) H 09/10/18 02:31 Urine Color Straw (YELLOW) 09/10/18 01:47 Urine Clarity Clear (Clear) 09/10/18 01:47 Urine pH 5.0 (5.0-8.0) 09/10/18 01:47 Ur Specific Jackson 1.003 (1.003-1.030) 09/10/18 01:47 Urine Protein Negative mg/dL (NEGATIVE) 09/10/18 01:47 Urine Glucose (UA) Normal mg/dL (Normal) 09/10/18 01:47 Urine Ketones Negative mg/dL (NEGATIVE) 09/10/18 01:47 Urine Blood Negative (NEGATIVE) 09/10/18 01:47 Urine Nitrate Negative (NEGATIVE) 09/10/18 01:47 Urine Bilirubin Negative (NEGATIVE) 09/10/18 01:47 Urine Urobilinogen Normal mg/dL (0.2-1.0) 04/06/19 01:47 Ur Leukocyte Esterase Neg Ramila/uL (Negative) 09/10/18 01:47 Urine WBC (Auto) < 1 /hpf (0-5) 09/10/18 01:47 Urine Bacteria Rare (<OCC) 09/10/18 01:47 O2 Sat by Pulse Oximetry: 99 (ON RA) Pulse Ox Interpretation: Normal Progress Note: Plan: - Labs. - Pepcid 20 mg IVP. - IV fluids. - Toradol 30 mg IVP. - Zofran 4 mg IVP. - UA. Pt pain has improved, labs wnl. Abd now soft NT. Pt is medically cleared for Detox Reevaluation Time: 03:30 Reassessment Condition: Improved Disposition - Disposition Disposition: HOSPITALIZED Disposition Time: 04:56 Condition: STABLE Forms: [employer] (Panamanian) - Clinical Impression Clinical Impression: Alcohol use disorder, severe, dependence - PA / TAX AUDIT MANAGER / Resident Statement MD/DO has reviewed & agrees with the documentation as recorded. - Scribe Statement The provider has reviewed the documentation as recorded by the Scribe Sha Forde All medical record entries made by the Scribe were at my direction and personally dictated by me. I have reviewed the chart and agree that the record accurately reflects my personal performance of the history, physical exam, medical decision making, and the department course for this patient. I have also personally directed, reviewed, and agree with the discharge instructions and disposition.
--- NOTE | 2018-09-10 05:44 | PCM.BM ---
<Jennifer Rosadoa M - Last Filed: 09/10/18 05:44> Treatment Plan Problems - Problems identified on initial assessmt Knowledge Deficit: Alcohol Use Date Initiated: 09/10/18 Time Initiated: 05:44 Assessment reference: NA Status: Active Treatment assets and liabiliti Patient Assests: ADL independent Patient Liabilities: substance abuse - Milieu Protocol Maintain good personal hygiene: daily Encourage regular showers, daily Remind patient to perform daily oral care, daily Assist patient to perform ADL's Conduct patient checks and document Observation sheet: Q15 minutes Maintain personal safety: every shift Educate patient to report safety concerns to staff, every shift Monitor environment for contraband/sharps Medication safety: Monitor for expected outcome, potential side effects: every shift, Assess barriers to learning: every shift, Assess readiness for medication education: every shift <Muna Cheema - Last Filed: 09/12/18 13:59> Family Contact Family involvement: Family/SO is involved Family contact name: Family contacted how many times per week?: 3 - Goals for Treatment Patient goals for treatment: Complete detox and transition to an IOP. Discharge/Continuing Care - Education Needs Education Needs: Patient Medication, Patient Diagnosis/Disease Process, Patient Coping Skills, Patient Anger Management skills, Patient Placement options, Patient Community resources, Significant Other Diagnosis/Disease Process, Significant Other Placement options - Discharge Discharge Criteria: No longer exhibiting s/s of withdrawal, Reduction of target symptoms Discharge to:: Home, With Family - Treatment Team Participation Patient/Family/SO Statement: 09/12/18 13:58 "I wanna go to an IOP--maybe [facility]..." Discussed with Family/SO: No Was Patient/Family/SO present at Treatment Team Meeting: Yes
--- NOTE | 2018-09-10 11:20 | PCM.PSYCH ---
Initial Psychiatric Evaluation - Initial Psychiatric Evaluation Type of Admission: Voluntary Legal Status: Capacity Chief Complaint (in patient's own words): I came here to get help..' History of Present Illness and Precipitating Events: Pt is a 33yr old male, who lives with his and works full- time, came to the [facility] ED to get help with alcohol detox. Patient reports history of few inpatient psychiatric hospitalizations for depression and reports history of detoxes for alcohol in the past. Patient reports that he has been drinking heavily since past 2 weeks. He reports of drinking 10-24 12-16 oz beers daily. He said he consumed up to 6 pack yesterday, started having withdrawal symptoms, so he came to the hospital to get help. He reports withdrawal symptoms from drinking including nausea, shakes, joint pains, sweating, headache and anxiety. He reports depressed mood, poor sleep and poor appetite. However he denies any feelings of hopelessness or helplessness. He denies any mood swings. He denies any auditory or visual hallucinations or any paranoia. He denies abusing any substances recently. Past medical history HTN Current Medications: Active Medications Generic Name Dose Route Start Last Admin Trade Name Freq PRN Reason Stop Dose Admin Clonidine HCl 0.1 mg 09/10/18 06:20 09/10/18 06:24 Catapres PO 0.1 mg Q8H PRN Administration Withdrawal Symptoms Past Psychiatric History - Past Psychiatric History Previous Treatment History: Inpatient Pertinent Medical Hx (Current Medical&Sleep Prob, Allergies): Allergies Allergy/AdvReac Type Severity Reaction Status Date / Time shellfish Allergy RASH Uncoded 09/10/18 00:10 No Known Home Med 09/10/18 Review of Systems - Review of Systems All systems: reviewed and no additional remarkable complaints except - Psychiatric Psychiatric: Anxiety, Irritability. absent: Suicidal Ideation Mental Status Examination - Personal Presentation Personal Presentation: Looks stated age - Affect Affect: Constricted - Motor Activity Motor Activity: Calm - Reliability in Providing Information Reliability in Providing Information: Fair - Speech Speech: Organized - Mood Mood: Anxious - Formal Thought Process Formal Thought Process: No Impairment - Obsessions/Compulsions Obsessions: No Compulsions: No - Cognitive Functions Orientation: Person, Place, Situation, Time Sensorium: Alert Attention/Concentration: Attentive Abstract Thinking: [place] Estimate of Intelligence: Below average Judgement: Imparied, as evidence by: Poor judgement, Intact, as evidence by: Insight regarding need for hospitalization - Risk Risk: Withdrawal, Diminished functioning - Limitations Limitations: Living alone DSM 5 DX - DSM 5 DSM 5 Diagnosis: Alcohol withdrawal Alcohol use d/o - severe Major depression, recurrent, moderate - Recommended/Plan of Treatment Treatment Recommendations and Plan of Treatment: Alcohol withdrawal Alcohol use d/o - severe Major depression, recurrent, moderate Taper with ativan Remeron for depression Protonix EC for stomach Gabapentin for augmentation and anxiety As needed medications All risks, benefits and alternatives of the meds discussed, and the pt agreed and understood. Attend groups and activities Supportive therapy and psychoeducation [place] for abstinence CBT for relapse prevention Encourage MAT Refer to rehab or IOP, and self-help groups Teach healthy lifestyle methods, i.e. diet, exercise, meditation Smoking cessation with [place] Nicotine patch if needed - Smoking Cessation Smoking Cessation Initiated: No
[2018-09-10] MEDS: Multiple Vitamins Tab PO SCH (12:15)
[2018-09-11] MEDS: Multiple Vitamins Tab PO SCH (09:57)
--- NOTE | 2018-09-11 15:45 | PCM.PYCHPN ---
Psychiatric Progress Note - Psychiatric Progress Note Patient seen today, length of contact: 15 min Patient Chief Complaint: I am withdrawing. Problems Identified/Issues Discussed: Patient seen and evaluated, chart reviewed and discussed with the nurse. Patient reports no improvement in the anxiety. Patient reports withdrawal symptoms including anxiety, sweating, shakes, headaches and nausea. He reports some improvement in his depressed mood but denies any feelings of hopelessness or helplessness. He denies any manic or psychotic symptom. He denies any suicidal ideation or homicidal ideation. He is taking medication but denies any side effects. Supportive therapy was given Medication Change: Yes Medical Record Reviewed: Yes Mental Status Examination - Cognitive Function Orientation: Person, Place, Situation, Time Memory: Intact Attention: WNL Concentration: Poor Association: WNL Fund of Knowledge: Poor - Mood Mood: Anxious - Affect Affect: Constricted - Speech Speech: Soft - Formal Thought Process Formal Thought Process: No Impairment - Suicidal Ideation Suicidal Ideation: No - Homicidal Ideation Homicidal Ideation: No Goal/Treatment Plan - Goal/Treatment Plan Need for Continued Stay: Remain at risks for inpatient hospitalization Progress Toward Problem(s) and Goals/Treatment Plan: Alcohol withdrawal Alcohol use d/o - severe Major depression, recurrent, moderate Taper with ativan Remeron for depression Protonix EC for stomach Gabapentin for augmentation and anxiety As needed medications All risks, benefits and alternatives of the meds discussed, and the pt agreed and understood. Attend groups and activities Supportive therapy and psychoeducation AK for abstinence CBT for relapse prevention Encourage MAT Refer to rehab or IOP, and self-help groups Teach healthy lifestyle methods, i.e. diet, exercise, meditation Smoking cessation with AK Nicotine patch if needed - Smoking Cessation Smoking Cessation Initiated: No
[2018-09-12] MEDS: Multiple Vitamins Tab PO SCH (09:12)
--- NOTE | 2018-09-12 13:33 | PCM.PYCHPN ---
Psychiatric Progress Note - Psychiatric Progress Note Patient seen today, length of contact: 15 min Medication Change: Yes (detox changes daily) Medical Record Reviewed: Yes Mental Status Examination - Cognitive Function Orientation: Person, Place, Situation, Time Memory: Intact Attention: WNL Concentration: Poor Association: WNL Fund of Knowledge: Poor - Mood Mood: Anxious - Affect Affect: Constricted - Speech Speech: Soft - Formal Thought Process Formal Thought Process: No Impairment - Suicidal Ideation Suicidal Ideation: No - Homicidal Ideation Homicidal Ideation: No Goal/Treatment Plan - Goal/Treatment Plan Need for Continued Stay: Remain at risks for inpatient hospitalization
[2018-09-12 17:34] LABS: ALB/GLOB RATIO 1.2 (1.0-2.1); ALBUMIN 4.1 g/dL (3.5-5.0); ALT/SGPT 166 U/L (21-72); AMYLASE 152 U/L (30-110); AST/SGOT 335 U/L (17-59); BLOOD UREA NITROGEN 13 mg/dL (9-20); CALCIUM 9.6 mg/dl (8.6-10.4); GFR NON-AFRICAN AMERICAN > 60; LIPASE 409 U/L (23-300)
[2018-09-13] MEDS: Multiple Vitamins Tab PO SCH (09:22)
--- NOTE | 2018-09-14 08:42 | PCM.PYCHDC ---
Mental Status Examination - Mental Status Examination Orientation: Person Discharge Summary - Discharge Note Consultations:: List each consultation separately and include: 1. Reason for request. 2. Findings. 3. Follow-up Summary of Hospital Course include:: 1. Description of specific treatment plan utilized for patients during their course of treatmen. 2. Summarize the time- course for resolution of acute symptoms and/or regressed behaviors. 3. Describe issues identified and worked on during hospitalization. 4. Describe medication utilized. 5. Describe medical problems identified and treated. 6. Reassessment of suicide risk Summary of Hospital Course: Pt will go to [facility] - Final Diagnosis (DSM 5) Condition upon Discharge: STABLE Disposition: HOME/ ROUTINE Prescriptions/Medication Reconciliation: Gabapentin [Neurontin] 100 mg PO BID #60 cap Mirtazapine [Remeron] 15 mg PO HS #30 tab traZODone [Desyrel] 50 mg PO HS PRN #30 tab PRN Reason: Insomnia
[2018-09-14 08:58] VITALS: BP 131/92; PULSE 106; RESP 20; TEMP 97.6; O2SAT 99
[2018-09-14] MEDS: Multiple Vitamins Tab PO SCH (09:10)
== END 2018-09-14 10:00 | disposition home or self-care (01) | DRG 750 ==
LOC: C.ER 00:01 → C.7D 04:58
PROVIDERS: ADMIT Psychiatry & Neurology Psychiatry; ATTEND Psychiatry & Neurology Psychiatry
PROC: HZ2ZZZZ Detoxification Services for Substance Abuse Treatment (ICD-10-PCS; principal; 2018-09-10)
PROC: HZ59ZZZ Individual Psychotherapy for Substance Abuse Treatment, Supportive (ICD-10-PCS; 2018-09-10)
PROC: HZ46ZZZ Group Counseling for Substance Abuse Treatment, Psychoeducation (ICD-10-PCS; 2018-09-10)
PROC: GZ3ZZZZ Medication Management (ICD-10-PCS; 2018-09-10)
DX: F10.230 Alcohol dependence with withdrawal, uncomplicated (principal); F33.1 Major depressive disorder, recurrent, moderate; Y90.8 Blood alcohol level of 240 mg/100 ml or more; F43.10 Post-traumatic stress disorder, unspecified; I10 Essential (primary) hypertension; J45.909 Unspecified asthma, uncomplicated; F17.210 Nicotine dependence, cigarettes, uncomplicated